=== PATIENT | male | born 1995 | race Caucasian/White ===

== ENCOUNTER 2025-03-17 10:27 | Emergency (ER) | payer BC, SELFPAY ==
[2025-03-17] VITALS (7 sets, daily range): BP systolic 119–157; BP diastolic 73–91; PULSE 78–90; RESP 18–20; TEMP 36.8–36.9; O2SAT 99–100; BMI 26.9
--- NOTE | 2025-03-17 11:16 | ED.GENADULT ---
HPI - General Adult General Chief complaint: General Medical Stated complaint: ANXIETY,DIZZINESS Time Seen by Provider: 03/17/25 10:46 Source: patient, EMS, RN notes reviewed and old records reviewed Mode of arrival: EMS History of Present Illness ED Provider: Kiarra Chandra PA-C HPI narrative: 29-year-old male with past medical history of anxiety presenting to the ED via EMS s/p feeling lightheaded/presyncopal & palpitations [employer] while driving his car. States he has been experiencing intermittent lightheadedness/presyncopal episodes x few months s/p drinking 2 Celsius drinks which he attributes symptoms starting from. Admits symptoms last about 1 hour followed by fatigue. Reports some associated chest discomfort and LUE tingling. Patient was seen and treated at [facility] ED about 3 weeks ago for similar symptoms states he had negative workup including CXR and head CT, was referred to [facility] neurology which he has an appointment on 03/28/2025. Also reports intermittent ETOH use, denies history of ETOH withdrawal. Denies headache, vision change or loss, nausea/vomiting, abdominal pain, SOB Related Data Allergies Allergy/AdvReac Type Severity Reaction Status Date / Time No Known Allergies Allergy Verified 03/17/25 10:47 Review of Systems Review of Systems: Yes all other systems are reviewed and are negative Constitutional: Constitutional: Reports as per HPI Neurologic: Denies Abnormal speech present [facility] Past Medical History Attestation statement: The following information was validated with the patient. Source: old records reviewed Social History Social History Alcohol intake: current Smoked in Last 30 Days: Yes Use of substances other than those prescribed or required for medical reasons: No Advance Directives: No Advance Directives Information Provided: Yes Do you have a plan to hurt others: No Plan Physical Exam ED Vital Signs: Vital Signs - 24 hr 03/17/25 10:46 03/17/25 12:48 03/17/25 12:49 Temperature 98.2 F Pulse Rate 90 78 84 Respiratory Rate 20 Blood Pressure 131/84 119/73 125/83 Pulse Oximetry 100 Oxygen Delivery Method Room Air 03/17/25 12:50 03/17/25 12:51 03/17/25 14:48 Temperature 98.5 F 98.5 F Pulse Rate 84 84 84 Respiratory Rate 18 18 Blood Pressure 127/91 H 125/83 125/83 Pulse Oximetry 99 99 Oxygen Delivery Method Room Air Room Air BMI result Body Mass Index 26.9 Const General: cooperative, healthy appearing, no acute distress, alert and awake Orientation/consciousness: patient oriented x3 Limitations: no limitations HENMT Head: Yes normal to inspection and Yes atraumatic Ears: hearing grossly normal bilaterally General nose exam: Normal external nose present Face and sinus: Yes normal facial exam Mouth: Normal oral and palatal mucosa present Throat: Yes posterior oropharynx normal and Yes uvula midline Eyes General: appearance normal, both eyes and all related structures Pupils: Equal, round and reactive pupils present EOM: EOMs intact bilaterally Neck Neck: Yes normal visual inspection and Yes no meningeal signs Resp Effort & Inspection: normal respiratory effort and no respiratory distress Auscultation: clear to auscultation bilaterally, no crackles, no rhonchi and no wheezes Cardio Rate: regular rate Heart sounds: S1 normal heart sound present and S2 normal heart sound present GI Inspection: Yes normal to inspection Palpation (GI): Soft to palpation, nontender, no guarding and not rigid Skin Rashes: no rashes Wounds: no wounds Neuro General: patient oriented x3, tone normal, moves all extremities, no meningeal signs, no focal motor deficits and CN's II-XI intact bilaterally Cranial nerves: Yes CN's II-XII intact bilaterally, Yes Equal, round and reactive pupils present and Yes Bilaterally intact EOM present Cognition (Neuro): normal cognition Speech: No Abnormal speech present Gait exam (Neuro): Normal gait present Motor exam (neuro): 5/5 motor strength present throughout, Pronator motor function not present and no tremor noted Coordination: [id number] test normal Romberg Test: Negative Extrem General: Yes normal to inspection Course Course Course Narrative: -1426--labs reassuring. AST/ALT mildly elevated. Troponin negative -tox screen positive for amphetamines. Ethanol 23 -viral testing negative -orthostatic vital signs negative Results discussed with patient including worrisome signs and symptoms and strict return precautions, and when to return to the emergency department. They verbalized understanding and feel safe for discharge at this time. Medications Administered Discontinued Medications Generic Name Dose Route Start Last Admin Trade Name Freq PRN Reason Stop Dose Admin Sodium Chloride 1,000 mls @ 999 mls/hr 03/17/25 11:30 03/17/25 11:59 Ns IV 03/17/25 12:30 999 mls/hr .Q1H1M HUGH Administration Medical Decision Making Medical Decision Making MDM Narrative: 29-year-old male with past medical history of anxiety presenting to the ED via EMS s/p feeling lightheaded/presyncopal & palpitations [employer] while driving his car. On exam vital signs stable, NAD, nontoxic appearing, no focal neuro deficits, lungs CTA. Concern for anxiety/panic attack vs presyncope. Low suspicion for ICH, SAH, meningitis/encephalitis,, ACS/PE, infectious etiology or dissection Plan: EKG, labs, UA/tox screen, orthostatic, IVF, re-evaluate Please refer to course for remaining clinical decision making, interpretation of labs/imaging results, and discussions with consultants and/or family members. Differential Diagnosis Differential Diagnoses: The differential diagnosis associated with the presentation includes As above Admission/Observation Consideration of admission/observation: Escalation of care including admission/observation considered Lab Data [facility] Lab Attestation statement: I reviewed the patient's lab results. 03/17/25 12:19 03/17/25 12:19 Labs: Lab Results 03/17/25 03/17/25 Range/Units 12:19 13:02 WBC 7.9 (4.8-10.8) X10*3/uL RBC 4.73 (4.60-5.80) X10*6/uL Hgb 15.1 (14.0-18.0) g/dl Hct 41.9 L (42.0-52.0) % MCV 88.6 (80.0-98.0) fL MCH 31.9 (27.0-33.0) pg MCHC 36.0 (31.0-36.0) g/dl RDW 12.6 (11.0-16.0) % Plt Count 194 (160-400) X10*3/uL MPV 9.2 L (9.4-12.4) fL Immature Gran % (Auto) 0.3 (0.0-0.4) % Neut % (Auto) 83.4 H (45-73) % Lymph % (Auto) 9.1 L (20-40) % Canyon % (Auto) 6.4 (2-11) % Eos % (Auto) 0.4 (0-4) % Baso % (Auto) 0.4 (0-2) % Lymph # (Auto) 0.7 L (1.2-4.9) X10*3/uL Canyon # (Auto) 0.5 (0.1-1.2) X10*3/uL Eos # (Auto) 0.0 (0.0-0.4) X10*3/uL Baso # (Auto) 0.0 (0.0-0.2) X10*3/uL Abs Immat Gran (auto) 0.02 (0.00-0.03) X10*3/uL Absolute Neuts (auto) 6.6 (2.0-8.3) x10*3/uL Absolute Nucleated RBC 0.000 (0.0-0.012) X10*3/uL Nucleated RBC % (auto) 0.0 (0.0-0.2) /100WBC Sodium 143 (135-145) mmol/L Potassium 4.2 (3.3-5.1) mmol/L Chloride 114 H (96-108) mmol/L Carbon Dioxide 20 L (22-29) mmol/L Anion Gap 13 (12-20) BUN 11 (9-16) mg/dL Creatinine 0.95 (0.5-1.4) mg/dL Estim Creat Clear Calc 108.2 Estimated GFR > 60 Random Glucose 75 (60-115) mg/dL Calcium 8.3 L (8.4-10.2) mg/dL Magnesium 1.9 (1.6-2.6) mg/dL Total Bilirubin 0.4 (0.0-1.0) mg/dL Direct Bilirubin 0.2 (0.0-0.5) mg/dL AST 48 H (5-37) U/L ALT 49 H (0-40) U/L Alkaline Phosphatase 45 (39-117) U/L Troponin I High Sens < 2.7 (<3.5-35.0) ng/L Total Protein 6.4 L (6.5-8.0) g/dL Albumin 4.1 (3.5-5.0) g/dL Urine Opiates Screen Not Detected (Not Detect) Ur Buprenorphine Scrn Not Detected (Not Detect) ng/mL Ur Oxycodone Screen Not Detected (Not Detect) ng/mL Urine Methadone Screen Not Detected (Not Detect) ng/mL Urine Fentanyl Screen Not Detected (Not Detect) Ur Barbiturates Screen Not Detected (Not Detect) Ur Phencyclidine Scrn Not Detected (Not Detect) Ur Amphetamines Screen POSITIVE H (Not Detect) U Benzodiazepines Scrn Not Detected (Not Detect) Urine Cocaine Screen Not Detected (Not Detect) U Marijuana (THC) Screen Not Detected (Not Detect) Ethyl Alcohol 23 mg/dL Influenza Type A (PCR) NEGATIVE (Negative) Influenza Type B (PCR) NEGATIVE (Negative) RSV RNA Qual (PCR) NEGATIVE (Negative) SARS-CoV-2 RNA (RT-PCR) NEGATIVE (Negative) Independent Interpretation I performed an independent interpretation of an: EKG Radiology Impression Discussion of test interpretation with radiology: I have reviewed the radiologist's reading. Independent Historian Clinical information obtained from an independent historian. History obtained from or confirmed by: EMS External Record Review External record reviewed: Inpatient record, Office record, Outpatient record, Prior outpatient labs, Prior outpatient radiology, Primary care record and Outside ED record Tests considered The following testing was considered but not selected: As above Prescription Management I considered prescription management with: Other Chronic Conditions Patient?s care impacted by: Other Social Determinants Patient?s care significantly limited by Social Determinants of Health including: Other Social Determinant of Health Discharge Plan Discharge Clinical Impression: Lightheadedness Patient Disposition: Home, Self-Care Instructions: Lightheadedness (ED) Additional Instructions: Your blood work is reassuring Continue home prescribed medications Please have close follow up with your primary care doctor as well as Neurology as and call to make an appointment Times persist or worsen, become constant, you have persistent or worsening nausea and for your vomiting, weakness, vision change or loss, chest negative pain or shortness of breath return to the ED [place] [facility] [facility] [place] - 1 week Yasmine Reaves FNP [Primary Care Provider] - 5 days Interventions: ED Discharge Assessment Last Done: 03/17/25 14:48 Discharge Date/Time: 03/17/25 14:49 Print Language: Bhutanese
--- NOTE | 2025-03-17 11:30 | ECG_ITS ---
Test Reason : light headed Blood Pressure : */* mmHG Vent. Rate : 81 BPM Atrial Rate : 81 BPM P-R Int : 138 ms QRS Dur : 84 ms QT Int : 376 ms P-R-T Axes : 33 22 32 degrees QTcB Int : 436 ms Normal sinus rhythm Normal ECG No previous ECGs available Referred By: Kiarra Chandra Electronically Signed By: VERONICA YUSUF
[2025-03-17] MEDS: 0.9 % Sodium Chloride 1,000 ML 999 ML IV (11:59)
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
[2025-03-17 12:23] LABS: MANUAL DIFF FLAG NO
[2025-03-17 12:28] LABS: Basophils Percent Auto 0.4 % (0-2); Eosinophils Percent Auto 0.4 % (0-4); Hematocrit 41.9 % (42.0-52.0); Hemoglobin 15.1 g/dl (14.0-18.0); Imm Gran Abs Auto 0.02 X10*3/uL (0.00-0.03); Imm Gran Pct Auto 0.3 % (0.0-0.4); Lymphocytes Absolute Auto 0.7 X10*3/uL (1.2-4.9); Lymphocytes Percent Auto 9.1 % (20-40); Mean Corpuscular Hemoglobin 31.9 pg (27.0-33.0); Mean Corpuscular Volume 88.6 fL (80.0-98.0); Mean Platelet Volume 9.2 fL (9.4-12.4); Monocytes Absolute Auto 0.5 X10*3/uL (0.1-1.2); Monocytes Percent Auto 6.4 % (2-11); Neutrophils Absolute Auto 6.6 x10*3/uL (2.0-8.3); Neutrophils Percent Auto 83.4 % (45-73); Platelet Count 194 X10*3/uL (160-400); Red Blood Count 4.73 X10*6/uL (4.60-5.80); Red Cell Distribution Width 12.6 % (11.0-16.0); White Blood Count 7.9 X10*3/uL (4.8-10.8)
[2025-03-17 12:40] LABS: Alanine Aminotransferase 49 U/L (0-40); Albumin Level 4.1 g/dL (3.5-5.0); Alkaline Phosphatase 45 U/L (39-117); Anion Gap 13 (12-20); Aspartate Amino Transferase 48 U/L (5-37); Bilirubin Direct 0.2 mg/dL (0.0-0.5); Bilirubin Total 0.4 mg/dL (0.0-1.0); Blood Urea Nitrogen 11 mg/dL (9-16); Calcium 8.3 mg/dL (8.4-10.2); Carbon Dioxide 20 mmol/L (22-29); Chloride 114 mmol/L (96-108); Creatinine Clr Calc Pharmacy 108.2; Estimated Glomerular Filt Rate > 60; Ethanol 23 mg/dL; Glucose Random 75 mg/dL (60-115); Magnesium 1.9 mg/dL (1.6-2.6); Potassium 4.2 mmol/L (3.3-5.1); Sodium 143 mmol/L (135-145); Total Protein 6.4 g/dL (6.5-8.0)
[2025-03-17 12:48] LABS: Troponin-I High Sensitivity < 2.7 ng/L (<3.5-35.0)
--- OUTSIDE RECORDS SUMMARY | 2025-03-17 12:50 | XMS_ITS | Clinical Summary ---
Author Organization [facility] Address [address] [place] [address] Phone Care Team Providers Care Laboratory Tech Name Role Phone Priya Etienne MD Primary Care Provider [email or web address] Allergies No known active allergies Medications Medication Sig Dispensed Refills Start Date End Date Status albuterol (PROAIR HFA) 90 mcg/actuation inhaler Inhale 2 puffs into the lungs every 4 (four) hours as needed for wheezing. 18 g 1 08/20/2021 Active Active Problems Problem Noted Date Diagnosed Date Mild intermittent asthma without complication Assessment & Plan (10/25/2021 5:07 PM EST): Likely secondary to smoking, as he did not have issues as a child Continue albuterol as needed Strongly recommended smoking cessation Lower abdominal pain 10/25/2021 Assessment & Plan (10/25/2021 5:14 PM EST): Rare episodes of brief sharp abdominal pain may be spontaneous volvulus, muscle cramp, intestinal colic As long as episodes do not last more than a few seconds, do not occur more frequently, and do not come with any other symptoms, ok to monitor Cigarette nicotine dependence without complicati on 12/21/2019 Anxiety 12/21/2019 Depression 12/21/2019 Attention deficit hyperactiv ity disorder (ADHD), combined type 12/21/2019 Assessment & Plan (10/25/2021 5:15 PM EST): he may be starting with an telemedicine service online for psychiatry Encounters Date Type Department Care Team Description 02/14/2025 5:08 PM EDT - 02/14/2025 7:40 PM EDT Emergency [facility] [address] [place] [address] Chato Greenberg MD Discharge Disposition: Home or Self Care 02/14/2025 Procedure Pass [facility], Ct Scan - [facility] [address] [place] [address] from Last 3 Months Immunizations Name Administration Dates Next Due DTaP 12/14/2000, 8,06/05/1997,04/08,02/10/1997 [id number] FORMULATION 09/23/2009 HPV,quadrivalent 10/23/2012,06/20/2012, 2 Hepatitis B 09/03/1997,01/23/1997,1996 Hib,PRP-T 04/01/1998, 7,04/08/1997,02/10 IPV 12/14/2000 Influenza Quadrivalent Prese rvative Free IM 10/25/2021,09/01/2015,08/27/2014,08/15 Influenza Recombinant Javier valent Preservative Free IM 12/17/2019 Influenza Trivalent w/ Preservative IM 2,09/15/2011,09/23/2010 Influenza, Unspecified Formulation 07/19,10/16/2008,09/21/2007,10/23 MMR 01/10/2002,04/01/1998 Meningococcal MCV4P 08/27/2014,02/24/2009 Polio - OPV 06/05/1997,04/08/1997,02/10/1997 Tdap 10/25/2021,02/24/2009 Varicella 02/22/2008,02/19/1999 Family History Medical History Relation Comments Bladder Cancer Maternal Grandfather Diabetes Maternal Grandfather Diabetes Maternal Grandmother Dementia Maternal Great-Grandmother Bladder Cancer Maternal Uncle great uncle Diabetes Paternal Grandfather Diabetes Paternal Grandmother Anxiety disorder Sister Depression Sister ADD / ADHD Unspecified Anxiety disorder Unspecified Depression Unspecified Relation Status Comments Father Alive Maternal Grandfather Maternal Grandmother Maternal Great-Grandmother Maternal Uncle Mother Alive Paternal Grandfather Paternal Grandmother Sister Unspecified cousin Social History Tobacco Use Types Packs/Day Years Used Date Smoking Tobacco: Every Day Cigarettes 0.5 15.3 Started: 2009 Smokeless Tobacco: Former Tobacco Cessation:Ready to Q uit: Not Asked; Counseling Given: Not Answered Alcohol Use Standard Drinks/Week Comments Yes 8 (1 standard drink = 0.6 oz pur e alcohol) A few nips on weekends Education Answer Date Recorded Are you interested in more education? Not on kaylene e 03/10/2023 Are you concerned about learning? Not on file 03/10/2023 No 03/10/2023 No 03/10/2023 Digital Access Answer Date Recorded No 04/07/2023 No 04/07/2023 Reliable internet access at home? Not on file 04/07/2023 Device with a working camera? Not on file Intimate Partner Violence Answer Date R ecorded Are you denied basic needs s uch as food, clothing, or medical care? No 02/14/2025 In the past 12 months have y ou been in a relationship with a person who hurts, threatens, or tries to control you? No 02/14/2025 Are you denied basic needs s uch as food, clothing, or medical care? No 02/14/2025 In the past 12 months have y ou been in a relationship with a person who hurts, threatens, or tries to control you? No 02/14/2025 Sex and Gender Information Value Date Recorded Sex Assigned at Male 04/02/2018 11:34 AM EDT Gender Identity Male 04/02/2018 11:34 AM EDT Sexual Orientation Straight 04/02/2018 11 :34 AM EDT Last Filed Vital Signs Vital Sign Reading Time Taken Comments Blood Pressure 129/82 02/14/2025 6:03 PM EDT Pulse 74 02/14/2025 6:03 PM EDT Temperature 36.7 ??C (98.1 ??F) 02/14/2025 6:03 PM ED T Respiratory Rate 18 02/14/2025 6:03 PM EDT Oxygen Saturation 99% 02/14/2025 6:03 PM EDT Inhaled Oxygen Concentration - - Weight 80.2 kg (176 lb 12.8 oz) 02/14/2025 2:42 PM EDT Height 170.2 cm (5' 7 ) 02/14/2025 2:42 PM EDT Body Mass Index 27.69 02/14/2025 2:42 PM EDT Plan of Treatment Health Maintenance Due Date Last Done Comments DEPRESSION SCREENING 2008 HEPATITIS C SCREENING 2014 HIV ONE-TIME SCREENING (18-65 YEARS) 2014 PNEUMOCOCCAL VACCINES (0-49 years) (1 of 2 - PCV) 2015 COVID-19 VACCINE (3 - season) 2024 10/13/2021, 09/22/2021 SMOKING Hx and SMOKELESS TOBACCO SCREENING 02/14/2026 02/14/2025 Adult Td,Tdap Booster 10/25/2031 10/25/2021, 009 HIB VACCINES Completed 04/01/1998, 05/14, 04/08/1997, Additional history exists MENINGOCOCCAL VACCINES (ACWY) Completed 08/27/2014, 02/24/2009 HEPATITIS A VACCINES Aged Out No long er eligible based on patient's age to complete this topic Medical Devices Not on file Procedures Procedure Name Priority Date/Time Associated Diagnosis Comments CT HEAD WITHOUT CONTRAST Routine 02/14/2025 4:34 PM EDT XR CHEST PA AND LATERAL 2 VIEWS Routine 02/14/2025 3:42 PM EDT ETHANOL, BLOOD STAT 02/14/2025 3:28 PM EDT MAGNESIUM STAT 02/14/2025 3:28 PM EDT LFTS (HEPATIC PANEL) STAT 02/14/2025 3:28 PM EDT BASIC METABOLIC PANEL STAT 02/14/2025 3:28 PM EDT CBC AND DIFFERENTIAL STAT 02/14/2025 3:28 PM EDT ECG 12-LEAD STAT 02/14/2025 2:54 PM EDT COVID PANDEMIC RESPIRATORY VIRAL ORDER (PRO) STAT 02/14/2025 2:49 PM EDT from Last 3 Months Results * CT HEAD WITHOUT CONTRAST (02/14/2025 4:34 PM EDT) Anatomical Region Laterality Modality Head Computed Tomogra phy 02/14/2025 5:24 PM EDT Impressions 02/14/2025 5:27 PM EDT No acute intracranial findings. Narrative 02/14/2025 5:[address] HEAD WITHOUT CONTRAST Referring clinician's provided indication for this examination in [facility]: * Head trauma, mod-severe; previous head trama, dizziness TECHNIQUE: CT of the head was performed without intravenous contrast using tailored dose modulation techniques. Images were reconstructed in the axial, coronal, and sagittal planes. COMPARISON: None FINDINGS: Brain Parenchyma: Normal. No midline shift, mass effect, parenchymal hemorrhage, or evidence of acute territorial infarct. Ventricular System and Extra-Axial Spaces: Normal. No extra-axial fluid collections. Basal cisterns are patent. No hydrocephalus. Osseous and Extracranial Structures: No calvarial fracture or significant soft tissue hematoma. Near-complete opacification of the left maxillary sinus. Mild mucosal thickening throughout of the paranasal sinuses. No orbital abnormality. Procedure Note Rickie Uribe MD, PhD - 02/14/2025 CT HEAD WITHOUT CONTRAST Referring clinician's provided indication for this examination in [facility]: *Head trauma, mod-severe; previous head trama, dizziness TECHNIQUE: CT of the head was performed without intravenous contrast usingtailored dose modulation techniques. Images were reconstructed in theaxial, coronal, and sagittal planes. COMPARISON: None FINDINGS: Brain Parenchyma: Normal. No midline shift, mass effect, parenchymalhemorrhage, or evidence of acute territorial infarct. Ventricular System and Extra-Axial Spaces: Normal. No extra-axial fluidcollections. Basal cisterns are patent. No hydrocephalus. Osseous and Extracranial Structures: No calvarial fracture or significantsoft tissue hematoma. Near-complete opacification of the left maxillarysinus. Mild mucosal thickening throughout of the paranasal sinuses. Noorbital abnormality. IMPRESSION: No acute intracranial findings. Rickie Garcia Dionicio PA-C IMG CT HEAD/NECK * XR CHEST PA AND LATERAL 2 VIEWS (02/14/2025 3:42 PM EDT) Anatomical Region Laterality Modality Chest Computed Radiogr aphy 02/14/2025 4:34 PM EDT Impressions 02/14/2025 4:35 PM EDT No focal consolidation or pulmonary edema. Narrative 02/14/2025 4:35 PM EDT XR CHEST PA AND LATERAL 2 VIEWS Referring clinician's provided indication for this examination in [facility]: Weakness/Malaise COMPARISON: None. FINDINGS: Devices/Tubes/Lines: None. Lungs: No focal consolidation or pulmonary edema. Pleura: No pleural effusion or pneumothorax. Heart/Mediastinum: Normal heart and mediastinum. Bones/Soft Tissues: No significant abnormality. Procedure Note Yuly Jones MD - 02/14/2025 XR CHEST PA AND LATERAL 2 VIEWS Referring clinician's provided indication for this examination in [facility]:Weakness/Malaise COMPARISON: None. FINDINGS: Devices/Tubes/Lines: None. Lungs: No focal consolidation or pulmonary edema. Pleura: No pleural effusion or pneumothorax. Heart/Mediastinum: Normal heart and mediastinum. Bones/Soft Tissues: No significant abnormality. IMPRESSION: No focal consolidation or pulmonary edema. Rickie Radha Dionicio PA-C IMG XR CHEST * Ethanol, blood (02/14/2025 3:28 PM EDT) ETHANOL <10 <10 mg/dL [facility] Blood 02/14/2025 3:28 PM EDT 02/14/2025 3:37 PM EDT Rickie REVELES-C LAB BLOOD ORDERABLES Performing Organization Address City/[facility]/ZIP Co de Phone Number [address] [address] * (ABNORMAL) LFTs (hepatic panel) (02/14/2025 3:28 PM EDT) Pathologist [facility] ALKALINE PHOSPHATASE 55 39 - 117 U/L [facility] TOTAL BILIRUBIN 0.3 0.0 - 1.2 mg/dL [facility] DIRECT BILIRUBIN 0.1 0.0 - 0.2 mg/dL [facility] Bilirubin (Indirect) NOT CALCULATED 0 - 1.5 mg/dL [facility] AST 34 0 - 37 U/L [facility] ALT 44(H) 0 - 40 U/L [facility] TOTAL PROTEIN 7.6 6.5 - 8.0 g/dL [facility] ALBUMIN 4.7 3.9 - 4.8 g/dL [facility] GLOBULIN 2.9 1 - 4.8 g/dL [facility] A/G Ratio 1.62 1.00 - 4.80 RATIO [facility] Blood 02/14/2025 3:28 PM EDT 02/14/2025 3:37 PM EDT Rickie Greenberg PA-C LAB BLOOD ORDERABLES Performing Organization Address [facility] Co de Phone Number [address] [address] * (ABNORMAL) CBC and differential (02/14/2025 3:28 PM EDT) WBC 11.35(H) 4.00 - 11.00 K/uL [facility] RBC 5.06 4.50 - 5.90 M/uL [facility] HGB 15.9 13.5 - 17.5 g/dL [facility] HCT 44.7 41.0 - 53.0 % [facility] PLT 266 150 - 450 K/uL [facility] MCV 88.3 80.0 - 100.0 fL [facility] MCH 31.4(H) 27.0 - 31.0 pg [facility] MCHC 35.6 32.0 - 36.0 g/dL [facility] RDW 12.5 11.5 - 14.5 % [facility] MPV 9.4 8.4 - 12.0 fL [facility] NRBC 0.00 0.00 /100 WBCs [facility] ABSOLUTE NRBC 0.00 0.00 K/uL [facility] DIFF METHOD Auto [facility] NEUTS 82.7(H) 48.0 - 76.0 % [facility] LYMPHS 9.5(L) 18.0 - 41.0 % [facility] MONOS 5.9 4.0 - 11.0 % [facility] EOS 1.1 0.0 - 5.0 % [facility] BASOS 0.4 0.0 - 1.5 % [facility] Granulocytes, immature (%) 0.4 0.0 - 0.9 % [facility] ABSOLUTE NEUTS 9.38(H) 1.92 - 7.60 K/uL [facility] ABSOLUTE LYMPHS 1.08 0.72 - 4.10 K/uL [facility] ABSOLUTE MONOS 0.67 0.16 - 1.10 K/uL [facility] ABSOLUTE EOS 0.12 0.00 - 0.50 K/uL [facility] ABSOLUTE BASOS 0.05 0.00 - 0.15 K/uL [facility] Granulocytes, immature 0.05 0.00 - 0.09 K/uL [facility] Blood 02/14/2025 3:28 PM EDT 02/14/2025 3:37 PM EDT Rickie Greenberg PA-C LAB BLOOD ORDERABLES [address] [address] * Magnesium (02/14/2025 3:28 PM EDT) MAGNESIUM 2.0 1.6 - 2.6 mg/dL [facility] Blood 02/14/2025 3:28 PM EDT 02/14/2025 3:37 PM EDT Rickie Greenberg PA-C LAB BLOOD ORDERABLES Performing Organization Address [facility] Co de Phone Number [address] [address] * Basic metabolic panel (02/14/2025 3:28 PM EDT) Pathologist [facility] SODIUM 138 133 - 146 mmol/L [facility] CHLORIDE 104 96 - 108 mmol/L [facility] POTASSIUM 4.3 3.3 - 5.1 mmol/L [facility] Comment:Specimen slightly he molyzed, result may be falsely elevated. CO2 23 21 - 35 mmol/L [facility] BUN 14 6 - 19 mg/dL [facility] CREATININE 1.10 0.5 - 1.5 mg/dL [facility] GLUCOSE 86 70 - 99 mg/dL [facility] CALCIUM 9.8 8.4 - 10.3 mg/dL [facility] EGFR 94 >59 mL/min/1.7 3m2 [facility] Comment:Estimated glomerular filtration rate calculated using the CKD-EPI refit equation. ANION GAP 15 10 - 20 mmol/L [facility] Blood 02/14/2025 3:28 PM EDT 02/14/2025 3:37 PM EDT Rickie Greenberg PA-C LAB BLOOD ORDERABLES Performing Organization Address [facility] Co de Phone Number [address] [address] * ECG 12-LEAD (02/14/2025 2:54 PM EDT) Ventricular Rate EKG/MIN 86 BPM [facility] Atrial Rate 86 BPM [facility] TX Interval 132 ms [facility] QRS Duration 78 ms [facility] QT Interval 352 ms [facility] QTC Interval 421 ms [facility] P [place] 41 degrees [facility] R Wave [place] 20 degrees [facility] T Wave [place] 29 degrees [facility] 02/14/2025 2:54 PM EDT 02/14/2025 11:25 PM EDT Narrative [facility] - 02/14/2025 11:25 PM EDT Normal sinus rhythm Normal ECG When compared with ECG of 24-Dec-2015 09:09, Questionable change in QRS axis Confirmed by Niko ERWIN ([id number]) on 02/14/2025 11:25:50 PM Chato Greenberg MD ECG ORDERABLES [facility] * COVID Pandemic Respiratory Viral Order (PRO) (02/14/2025 2:49 PM EDT) Test Ordered COVID, Flu has been ordered [facility] Specimen Source/Descriptio n NASOPHARYNGEAL SWAB [facility] Influenza A PCR Not Detected Not Detected [facility] Influenza B PCR Not Detected Not Detected [facility] SARS-CoV 2 (COVID-19) PCR Not Detected Not Detected [facility] Comment: SARS-CoV-2 not detected Negative results do not preclude SARS-CoV-2 infection and should not be used as the sole basis for patient management decisions. Negative results must be combined with clinical observations, patient history, and epidemiological information. Other (Nasopharyngeal swab) 02/14/2025 2:49 PM EDT 02/14/2025 3:11 PM EDT Chato Greenberg MD BODY FLUIDS AND STOO LS ORDERABLES Performing Organization Address City/[facility] Co de Phone Number [facility] [address] [place] [address] from Last 3 Months Care Teams Laboratory Tech Relationship Specialty Start Date End Date Priya Etienne MD [email or web address] PCP - General Family Medicine 09/08/21 Additional Source Comments The information contained in this document represents components of the legal health record. It is not the complete legal health record.[facility]
--- OUTSIDE RECORDS SUMMARY | 2025-03-17 12:50 | XMS_ITS | Encounter Summary ---
Author Organization [facility] Address [address] [place] [address] Phone Care Team Providers Care Bass Viol Repairer Name Role Phone Priya Etienne MD Primary Care Provider [email or web address] Encounter Details Date Type Department Care Team (Latest Contact Info) Description 08/23/2023 Transcribe Orders [facility] [address] [place] [address] Hannah Dugan NP [address] [place] [address] [email or web address] (Primary Dx); Periumbilical pain, chronic; Diarrhea, unspecified type Social History Tobacco Use Types Packs/Day Years Used Date Smoking Tobacco: Every Day Cigarettes 0.5 15.3 Started: 2009 Smokeless Tobacco: Former Alcohol Use Standard Drinks/Week Comments Yes 0 (1 standard drink = 0.6 oz pur [...] with a working camera? Not on file Sex and Gender Information Value Date Recorded Sex Assigned at Male 04/02/2018 11:34 AM EDT Gender Identity Male 04/02/2018 11:34 AM EDT Sexual Orientation Straight 04/02/2018 11 :34 AM EDT documented as of this encounter Plan of Treatment Not on file documented as of this encounter Results * C-Reactive Protein (08/23/2023 3:06 PM EDT) C REACTIVE PROTEIN <3.0 0.0 - 4.0 mg/L [facility] Blood 08/23/2023 3:06 PM EDT 08/23/2023 3:10 PM EDT Hannah Dugan REGIONAL ENVIRONMENTAL MANAGER LAB BLOOD ORDERABLE S [facility] [address] [place] [address] * (ABNORMAL) Comprehensive metabolic panel (08/23/2023 3:06 PM EDT) SODIUM 138 133 - 146 mmol/L [facility] POTASSIUM 4.3 3.3 - 5.1 mmol/L [facility] CHLORIDE 104 96 - 108 mmol/L [facility] CO2 23 21 - 35 mmol/L [facility] BUN 13 6 - 19 mg/dL [facility] CREATININE 1.20 0.5 - 1.5 mg/dL [facility] GLUCOSE 84 70 - 99 mg/dL [facility] ALBUMIN 5.0(H) 3.9 - 4.8 g/dL [facility] TOTAL PROTEIN 7.8 6.5 - 8.0 g/dL [facility] CALCIUM 10.1 8.4 - 10.3 mg/dL [facility] ALKALINE PHOSPHATASE 57 39 - 117 U/L [facility] TOTAL BILIRUBIN 0.4 0.0 - 1.2 mg/dL [facility] AST 43(H) 0 - 37 U/L [facility] ALT 38 0 - 40 U/L [facility] GLOBULIN 2.8 1 - 4.8 g/dL [facility] EGFR 86 >59 mL/min/1.7 3m2 [facility] Comment:Estimated glomerular filtration rate calculated using the CKD-EPI refit equation. ANION GAP 15 10 - 20 mmol/L [facility] Blood 08/23/2023 3:06 PM EDT 08/23/2023 3:10 PM EDT Hannah Dugan REGIONAL ENVIRONMENTAL MANAGER LAB BLOOD ORDERABLE S [facility] [address] [place] [address] * CBC and differential (08/23/2023 3:06 PM EDT) WBC 6.78 4.00 - 11.00 K/uL [facility] RBC 5.02 4.48 - 5.88 M/uL [facility] HGB 16.0 13.4 - 17.5 g/dL [facility] HCT 45.5 38.0 - 51.0 % [facility] PLT 228 140 - 430 K/uL [facility] MCV 90.6 78.0 - 97.0 fL [facility] MCH 31.9 25.0 - 33.0 pg [facility] MCHC 35.2 32.0 - 36.0 g/dL [facility] RDW 12.3 11.0 - 15.0 % [facility] MPV 11.0 8.4 - 12.8 fl [facility] DIFF METHOD Auto [facility] NEUTS 63.8 43.0 - 75.0 % [facility] LYMPHS 22.7 18.2 - 47.4 % [facility] MONOS 8.8 4.00 - 11.00 % [facility] EOS 3.4 0.0 - 8.0 % [facility] BASOS 0.9 0.0 - 2.0 % [facility] Granulocytes, immature (%) 0.4 0.0 - 0.9 % [facility] ABSOLUTE NEUTS 4.32 1.80 - 7.70 K/uL [facility] ABSOLUTE LYMPHS 1.54 1.00 - 3.10 K/uL [facility] ABSOLUTE MONOS 0.60 0.20 - 0.80 K/uL [facility] ABSOLUTE EOS 0.23 0.00 - 0.80 K/uL [facility] ABSOLUTE BASOS 0.06 0.00 - 0.09 K/uL [facility] Granulocytes, immature 0.03 0.00 - 0.05 K/uL [facility] Blood 08/23/2023 3:06 PM EDT 08/23/2023 3:10 PM EDT Hannah Dugan REGIONAL ENVIRONMENTAL MANAGER LAB BLOOD ORDERABLE S Performing Organization Address City/[facility] [address] [facility] Co de Phone Number [address] [address] * Immunoglobulin A (08/23/2023 3:06 PM EDT) IgA 173 70 - 400 mg/dL [facility] Blood 08/23/2023 3:06 PM EDT 08/23/2023 3:10 PM EDT Hannah Dugan REGIONAL ENVIRONMENTAL MANAGER LAB BLOOD ORDERABLE S Performing Organization Address [facility] [address]/[facility] Co de Phone Number [address] [address] * Tissue transglutaminase IgA (08/23/2023 3:06 PM EDT) TTG IGA ANTIBODY <1.2 <4.0 (Negative) U/mL [facility] Blood 08/23/2023 3:06 PM EDT 08/23/2023 3:10 PM EDT Hannah Dugan REGIONAL ENVIRONMENTAL MANAGER LAB BLOOD ORDERABLE S Performing Organization Address City/[facility] [address]/[facility] Co de Phone Number [facility] [address] [place] [address] documented in this encounter Visit Diagnoses Diagnosis Bloating- Primary Flatulence, eructation, and gas pain Periumbilical pain, chronic Diarrhea, unspecified type documented in this encounter Additional Health Concerns Infection Onset Date Last Indicated Resolved Time CoV-Risk 02/14/2025 02/14/2025 02/25/2025 1:23 AM EDT Assessment Noted Time A Body Mass Index follow-up plan has been documented for the patient 12/21/2019 11:13 AM EST documented as of this encounter Care Teams Bass Viol Repairer Relationship Specialty Start Date End Date Priya Etienne MD [email or web address] PCP - General Family Medicine 09/08/21 documented as of this encounter Additional Source Comments The information contained in this document represents components of the legal health record. It is not the complete legal health record.[facility]
--- OUTSIDE RECORDS SUMMARY | 2025-03-17 12:50 | XMS_ITS | Encounter Summary ---
Author Organization [facility] Address [address] [place] [address] Phone Care Team Providers Care Transcribing Machine Operator Name Role Phone John Guerrero MD Primary Care Provider [phone] Elaine Shook RNsalad bar clerk Provider [phone] Gisselle Mcclellan MD Primary Care Provider [phone] Priya Etienne MD Primary Care Provider [email or web address] Encounter Details Date Type Department Care Team (Late st Contact Info) Description 07/24/2018 Procedure Pass [address] [place] [address] Social History Tobacco Use Types Packs/Day Years Used Date Smoking Tobacco: Former Smokeless Tobacco: Former Sex and Gender Information Value Date Recorded Sex Assigned at Male 04/02/2018 11:34 AM EDT Gender Identity Male 04/02/2018 11:34 AM EDT Sexual Orientation Straight 04/02/2018 11 :34 AM EDT documented as of this encounter Last Filed Vital Signs Vital Sign Reading Time Taken Comments Blood Pressure - - Pulse - - Temperature - - Respiratory Rate - - Oxygen Saturation - - Inhaled Oxygen Concentration - - Weight 66.2 kg (146 lb) 07/27/2018 5:05 PM EDT Height 170.2 cm (5' 7 ) 07/27/2018 5:05 PM EDT Body Mass Index 22.87 07/27/2018 5:05 PM EDT documented in this encounter Plan of Treatment Not on file documented as of this encounter Visit Diagnoses Not on filedocumented in this encounter Additional Health Concerns Infection Onset Date Last Indicated Resolved Time CoV-Exposed Comment:Recent close contact 10/16/2020 10/16/2020 10/30/2020 1:25 AM EST CoV-Risk 08/20/2021 08/20/2021 08/30/2021 1:23 AM EDT CoV-Risk 02/14/2025 02/14/2025 02/25/2025 1:23 AM EDT documented as of this encounter Care Teams Transcribing Machine Operator Relationship Specialty Start Date End Date John Guerrero MD [address] [facility], [address] [place] [address] [email or web address] PCP - General 08/29/17 12/11/19 Elaine Shook RN [address] [place] [address] [email or web address] PCP - General Internal Medicine 12/12/19 08/19/21 Gisselle Mcclellan MD [address] [place] [address], [address] [place] [address] [email or web address] PCP - General Internal Medicine 08/20/21 09/07/21 Priya Etienne MD [email or web address] PCP - General Family Medicine 09/08/21 documented as of this encounter Additional Source Comments The information contained in this document represents components of the legal health record. It is not the complete legal health record.[facility]
--- OUTSIDE RECORDS SUMMARY | 2025-03-17 12:50 | XMS_ITS | Encounter Summary ---
Author Organization [facility] Address [address] [place] [address] Phone Care Team Providers Care Hospital Tray Service Worker Name Role Phone Priya Etienne MD Primary Care Provider [email or web address] Encounter Details Date Type Department Care Team (Late st Contact Info) Description 02/14/2025 Procedure Pass [facility], Ct Scan - [address] [address] Social History Tobacco Use Types Packs/Day Years Used Date Smoking Tobacco: Every Day Cigarettes 0.5 15.3 Started: 2009 Smokeless Tobacco: Former Alcohol Use Standard Drinks/Week Comments Yes 8 [...] documented as of this encounter Care Teams Hospital Tray Service Worker Relationship Specialty Start Date End Date Priya Etienne MD [email or web address] PCP - General Family Medicine 09/08/21 documented as of this encounter Additional Source Comments The information contained in this document represents components of the legal health record. It is not the complete legal health record.[facility]
--- OUTSIDE RECORDS SUMMARY | 2025-03-17 12:50 | XMS_ITS | Encounter Summary ---
Author Organization [facility] Address [address] [place] [address] Phone Care Team Providers Care Access Control Specialist Name Role Phone John Guerrero MD Primary Care Provider [phone] Elaine Shook RNpta Provider [phone] Gisselle Mcclellan MD Primary Care Provider [phone] Priya Etienne MD Primary Care Provider [email or web address] Reason for Referral * MRI/CAT Scan - Closed Specialty Diagnoses / Procedures Referred By Contac t Referred To Contact Radiology Diagnoses Chronic low back pain with sciatica, sciatica laterality unspecified, unspecified back pain laterality Lumbar radiculopathy Procedures MRI Lumbar Spine Jameel Rogers PA [address] [place] [address] Referral ID Status Reason Start Date Expiration Date Visits Re quested Visits Authorized [id number] Closed 07/17/2018 10/15/2018 1 1 Encounter Details Date Type Department Care Team (Latest Contact Info) Description 07/24/2018 Ancillary Orders Virtual Department [address] [place] [address] Jameel Rogers PA [address] [place] [address] [email or web address] Chronic low back pain with sciatica, sciatica laterality unspecified, unspecified back pain laterality; Lumbar radiculopathy Social History Tobacco Use Types Packs/Day Years Used Date Smoking Tobacco: Former Smokeless Tobacco: Former Sex and Gender Information Value Date Recorded Sex Assigned at Male 04/02/2018 11:34 AM EDT Gender Identity Male 04/02/2018 11:34 AM EDT Sexual Orientation Straight 04/02/2018 11 :34 AM EDT documented as of this encounter Plan of Treatment Not on file documented as of this encounter Results * MRI LUMBAR SPINE (NEURO) WITHOUT CONTRAST (08/01/2018 3:08 PM EDT) Anatomical Region Laterality Modality L-spine Magnetic Resonan ce 08/01/2018 3:13 PM EDT Impressions 08/01/2018 3:27 PM EDT Small, inferiorly extending left L4-5 disc protrusion abutting the left L4 nerve root. This could be a source of left radicular symptoms. POS - [id number] Edited by: Tawana Bridges on 08/01/2018 3:21 PM Narrative 08/01/2018 3:27 PM EDT HISTORY: Low back pain with left radiculopathy. COMPARISON: Report of EMG radiographs April 16. TECHNIQUE: Exam performed on a 1.5 Esme high-field MRI scanner. ??Sagittal T1, T2 and STIR, axial T1 and T2 sequences were obtained. FINDINGS: On sagittal views at T12-L1 and L1-2 no findings of concern. Mild disc desiccation L1-2. L2-3: Mild disc desiccation and some trace disc bulging. No canal or foraminal stenosis. L3-4: Low normal disc height. No focal disc abnormality of concern with some trace disc bulging towards the left foramen origin. No prominent canal or foraminal stenosis. L4-5: Left-sided inferiorly extending disc protrusion abutting the left L4 nerve root and could be a source of left radicular symptoms. There is only minor mass effect on the thecal sac. Mild disc height loss. L5-S1: No findings of concern. No worrisome marrow signal change. No compression deformity. Study not tailored for evaluation of regional soft tissues but no soft tissue findings of concern are identified. Procedure Note Amado Harvey MD - 08/01/2018 HISTORY: Low back pain with left radiculopathy. COMPARISON: Report of EMG radiographs April 16. TECHNIQUE: Exam performed on a 1.5 Esme high-field MRI scanner. SagittalT1, T2 and STIR, axial T1 and T2 sequences were obtained. FINDINGS: On sagittal views at T12-L1 and L1-2 no findings of concern. Mild discdesiccation L1-2. L2-3: Mild disc desiccation and some trace disc bulging. No canal orforaminal stenosis. L3-4: Low normal disc height. No focal disc abnormality of concern withsome trace disc bulging towards the left foramen origin. No prominentcanal or foraminal stenosis. L4-5: Left-sided inferiorly extending disc protrusion abutting the left [id number] root and could be a source of left radicular symptoms. There is onlyminor mass effect on the thecal sac. Mild disc height loss. L5-S1: No findings of concern. No worrisome marrow signal change. No compression deformity. Study not tailored for evaluation of regional soft tissues but no softtissue findings of concern are identified. IMPRESSION: Small, inferiorly extending left L4-5 disc protrusion abutting the left [id number] root. This could be a source of left radicular symptoms. POS - [id number] Edited by: Tawana Bridges on 08/01/2018 3:[address] [facility] MR XSPECIALTY documented in this encounter Visit Diagnoses Diagnosis Chronic low back pain with sciatica, sciatica laterality unspecified, unspecified back pain laterality Lumbar radiculopathy Thoracic or lumbosacral neuritis or radiculitis, unspecified Chronic low back pain with sciatica, sciatica laterality unspecified, unspecified back pain laterality Lumbar radiculopathy Thoracic or lumbosacral neuritis or radiculitis, unspecified documented in this encounter Additional Health Concerns Infection Onset Date Last Indicated Resolved Time CoV-Exposed Comment:Recent close contact 10/16/2020 10/16/2020 10/30/2020 1:25 AM EST CoV-Risk 08/20/2021 08/20/2021 08/30/2021 1:23 AM EDT CoV-Risk 02/14/2025 02/14/2025 02/25/2025 1:23 AM EDT documented as of this encounter Care Teams Access Control Specialist Relationship Specialty Start Date End Date John Guerrero MD [address] [facility], [address] [place] [address] [email or web address] PCP - General 08/29/17 12/11/19 Elaine Shook RN [address] [place] [address] [email or web address] PCP - General Internal Medicine 12/12/19 08/19/21 Gisselle Mcclellan MD [address] [place] [address], [address] [place] [address] [email or web address] PCP - General Internal Medicine 08/20/21 09/07/21 Priya Etienne MD [email or web address] PCP - General Family Medicine 09/08/21 documented as of this encounter Additional Source Comments The information contained in this document represents components of the legal health record. It is not the complete legal health record.[facility]
--- OUTSIDE RECORDS SUMMARY | 2025-03-17 12:50 | XMS_ITS | Encounter Summary ---
Author Organization [facility] Address [address] [place] [address] Phone Care Team Providers Care Surgical Device Sales Representative Name Role Phone Priya Etienne MD Primary Care Provider [email or web address] Encounter Details Date Type Department Care Team (Latest Contact Info) Description 08/24/2023 Transcribe Orders Virtual Department [address] [place] [address] Hannah Dugan NP [address] [place] [address] [email or web address] Bloating (Primary Dx); Diarrhea, unspecified type; Periumbilical abdominal pain Social History Tobacco Use Types Packs/Day Years [...] documented as of this encounter Visit Diagnoses Diagnosis Bloating- Primary Flatulence, eructation, and gas pain Diarrhea, unspecified type Periumbilical abdominal pain Abdominal pain, periumbilic documented in this encounter Additional Health Concerns Infection Onset Date Last Indicated Resolved Time CoV-Risk 02/14/2025 02/14/2025 02/25/2025 1:23 AM EDT Assessment Noted Time A Body Mass Index follow-up plan has been documented for the patient 12/21/2019 11:13 AM EST documented as of this encounter Care Teams Surgical Device Sales Representative Relationship Specialty Start Date End Date Priya Etienne MD [email or web address] PCP - General Family Medicine 09/08/21 documented as of this encounter Additional Source Comments The information contained in this document represents components of the legal health record. It is not the complete legal health record.[facility]
[2025-03-17 13:25] LABS: Amphetamine Screen Urine POSITIVE (Not Detect); Barbiturates, Urine Not Detected (Not Detect); Benzodiazepines Screen Urine Not Detected (Not Detect); Buprenorphine Scr Not Detected (Not Detect); Cannabinoid Screen Urine Not Detected (Not Detect); Cocaine Screen Urine Not Detected (Not Detect); Fentanyl, urine Not Detected (Not Detect); Methadone Screen, Urine Not Detected (Not Detect); Opiate Screen Urine Not Detected (Not Detect); Oxycodone Screen Urine Not Detected (Not Detect); Phencyclidine Screen Urine Not Detected (Not Detect)
[2025-03-17 13:39] LABS: Influenza A PCR NEGATIVE (Negative); Influenza B PCR NEGATIVE (Negative); Resp Syncy Virus RNA Qual PCR NEGATIVE (Negative); SARS COV2 PCR INHOUSE NEGATIVE (Negative)
== END 2025-03-17 14:49 | disposition home or self-care (01) ==
PROVIDERS: Physician Assistant; Emergency Provider Emergency Medicine
DX: F41.9 Anxiety disorder, unspecified (principal); R42 Dizziness and giddiness; R00.2 Palpitations; F15.90 Other stimulant use, unspecified, uncomplicated; F10.90 Alcohol use, unspecified, uncomplicated; Y90.1 Blood alcohol level of 20-39 mg/100 ml; Z79.899 Other long term (current) drug therapy; Z51.81 Encounter for therapeutic drug level monitoring; Z03.818 Encounter for observation for suspected exposure to other biological agents ruled out
CPT/HCPCS: 0241U; 80048; 80076; 80307; 83735; 84484; 85025; 93005; 99285

== ENCOUNTER → 2025-03-17 11:30 | Outpatient (BNV) | payer BC, SELFPAY | PROVIDERS: Emergency Provider Emergency Medicine; Visit Provider Internal Medicine | DX: R42 Dizziness and giddiness (principal) | CPT/HCPCS: 93010 ==

== ENCOUNTER 2025-04-06 18:56 | Emergency (ER) | payer BC, SELFPAY ==
--- NOTE | ~2025-04-06 | XR_ITS ---
CLINICAL HISTORY: severe pain rad L leg 2 views lumbar spine Comparison: None Findings: Mild lumbar levocurvature with apex at L3-L4 possibly positional. No acute fractures or dislocation. No significant degenerative change. IMPRESSION: Mild lumbar levocurvature with apex at L3-L4 possibly positional. Otherwise no acute findings. This document has been electronically signed by: Yesenia Owens MD on 04/06/2025 20:01:06
[2025-04-06 19:05] VITALS: BP 109/72; PULSE 124; RESP 18; TEMP 36.7; O2SAT 97; BMI 27.2
--- NOTE | 2025-04-06 19:05 | ED_ITS ---
HPI - Back Pain/Injury General Chief Complaint: Back Pain/Injury Stated Complaint: herniated disk Related Data Previous Rx's ?Medication ?Instructions ?Recorded morphine 15 mg immediate release 15 mg PO Q6H PRN pain #14 tabs 04/07/25 tablet Allergies Allergy/AdvReac Type Severity Reaction Status Date / Time No Known Allergies Allergy Verified 04/07/25 03:27 [facility] Social History Social History Alcohol intake: current Smoked in Last 30 Days: Yes Use of substances other than those prescribed or required for medical reasons: No Advance Directives: No Do you have a plan to hurt others: No Plan Physical Exam Vital Signs: Vital Signs: Last Vital Signs Temp 98.1 F 04/06/25 19:05 Pulse 124 H 04/06/25 19:05 Resp 18 04/06/25 19:05 BP 109/72 04/06/25 19:05 Pulse Ox 97 04/06/25 19:05 O2 Del Method Room Air 04/06/25 19:05 BMI result Body Mass Index 27.2 Course Course Course Narrative: This is an RME performed by Mina Herrera CNP: Additional HPI, ROS, PE not included below will be deferred to primary provider. Patient is a 21-year-old male who presents emergency department for evaluation of low back pain radiating to the left leg. 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 Reports approximately 7 years ago he had cortisone injections for this. Due to loss of insurance and never really followed up in regards to this. He would have an occasional flare of pain with the last occurring approximately 2 years ago. Reports that he awoke yesterday morning with stiffness that has progressively worsened and he is having severe pain. tried acetaminophen/ibuprofen without improvement, tried to take some shots of alcohol without improvement. Known precipitating injury or heavy lifting. No saddle paresthesias. No bladder bowel dysfunction. very uncomfortable, difficulty to sit in triage chair, right side lying essentially, tachycardia 130, suspect due to pain, afebrile, no reported or infectious sx. ambulatory with slow steady gait. Placed in waiting room pending bed availability Reevaluation(s) Reevaluation #1: LWCT Discharge Plan Discharge Clinical Impression: Back pain Patient Disposition: Left W/O Completing Treatment Prescriptions: No Action morphine 15 mg tablet 15 mg PO Q6H PRN (Reason: pain) Qty: 14 0RF Rx Instructions: Partial Fill upon patient request. Discharge Date/Time: 04/06/25 20:39
--- NOTE | 2025-04-06 20:31 | PC.NURSE ---
called no response from waiting room x 2 at 19:55.
== END 2025-04-06 20:39 | disposition left against medical advice (07) ==
LOC: HO.ED 20:39
PROVIDERS: Emergency Provider Emergency Medicine
DX: M54.50 Low back pain, unspecified (principal)
CPT/HCPCS: 72100; 99281; 99283

== ENCOUNTER → 2025-04-06 19:11 | Outpatient (BNV) | payer BC, SELFPAY | PROVIDERS: Emergency Provider Emergency Medicine; Visit Provider Radiology Diagnostic Radiology | DX: M41.86 Other forms of scoliosis, lumbar region (principal) | CPT/HCPCS: 72100 ==

== ENCOUNTER 2025-04-07 03:12 | Emergency (ER) | payer BC, SELFPAY ==
--- NOTE | ~2025-04-07 | CT_ITS ---
CLINICAL HISTORY: Left lower back pain radiating to foot --- Additional Notes or Special Instructions : R O bulging disc, disc disease CT lumbar spine without contrast Comparison: None Findings: Normal vertebral body alignment. No acute fractures or dislocations. There is left foraminal degenerative disc protrusion at L4-L5. Visualized abdominal contents unremarkable. IMPRESSION: 1. No acute findings. 2. Left foraminal L4-L5 degenerative disc protrusion This document has been electronically signed by: Isaac Schulte MD on 04/07/2025 04:45:05
[2025-04-07 03:22] VITALS: BP 133/92; PULSE 102; RESP 22; TEMP 36.6; O2SAT 98; BMI 27.2
[2025-04-07 03:24] VITALS: BMI 27.4
[2025-04-07 03:30] VITALS: BP 118/78; PULSE 87; RESP 18; TEMP 37.1; O2SAT 98
--- NOTE | 2025-04-07 03:39 | ED_ITS ---
HPI - Back Pain/Injury General Chief Complaint: Back Pain/Injury Stated Complaint: herniated disc ? Time Seen by Provider: 04/07/25 03:37 Source: patient Mode of arrival: ambulatory Limitations: no limitations History of Present Illness ED Provider: Dr. Cheo Macdonald HPI Narrative: 29-year-old male who presents emergency department for evaluation of low back pain radiating to the left leg. The patient states that the pain came on suddenly on Monday morning (1 day prior). He denies any injury. Patient's pain is located in his left lower back and radiates down the back of his leg to his foot. He states that the pain is greater than 10/10 in his worse with movement. He states that he gets occasional numbness but no weakness of the left lower extremity. He is having difficulty walking however secondary to his pain. Patient states he had similar pain 10 years ago and was diagnosed with a bulging disc and sciatica. He states that he had a steroid injection and that significantly improved his pain. He states that he was supposed to get physical therapy but he lost his insurance and never got physical therapy. He states that the pain eventually resolved. He states he gets occasional flare-up of this type of pain but that has last episode was 2 years prior. He denied loss of bowel or bladder control, frequency, urgency or dysuria. He denied fever or chills. He denies using injection drugs. Related Data Previous Rx's ?Medication ?Instructions ?Recorded morphine 15 mg immediate release 15 mg PO Q6H PRN pain #14 tabs 04/07/25 tablet Allergies Allergy/AdvReac Type Severity Reaction Status Date / Time No Known Allergies Allergy Verified 04/07/25 03:27 Review of Systems Review of Systems: Yes all other systems are reviewed and are negative [facility] Past Medical History [facility] Narrative: Social history: He does smoke 1 pack of cigarettes per day. He drinks alcohol 2 to 3 times a week and will drink 3-4 beers and occasional liquor as well. He denied drug use. Social History Social History Alcohol intake: current Smoked in Last 30 Days: Yes Use of substances other than those prescribed or required for medical reasons: No Advance Directives: No Do you have a plan to hurt others: No Plan Physical Exam Vital Signs: Vital Signs: Last Vital Signs Temp 98.8 F 04/07/25 03:30 Pulse 87 04/07/25 03:30 Resp 18 04/07/25 03:30 BP 118/78 04/07/25 03:30 Pulse Ox 98 04/07/25 03:30 O2 Del Method Room Air 04/07/25 03:30 BMI result Body Mass Index 27.4 Vital signs were normal Exam: General: Awake, appears to be in significant distress secondary to his pain, he is having difficulty moving on the stretcher secondary to his discomfort. Head: Normocephalic, atraumatic EENT: PERRL, Lids normal, sclera normal, conjunctiva normal, nose normal , ears normal, throat without erythema or exudates Neck: Supple, no adenopathy Lung: breath sounds symmetric, no wheezing, rales or rhonchi Chest: symmetric movement, nontender Heart: regular rate and rhythm, normal S1, S2 no murmurs or rubs Abdomen: soft, non-tender, nondistended, normal bowel sounds Back: no vertebral tenderness, no paraspinal muscle tenderness or spasm. The patient has increased pain with bilateral straight leg raise. Neuro: Awake, alert, oriented, normal speech, cranial nerves intact, moves all extremities symmetrically Psych: Pleasant, cooperative Medications Administered Discontinued Medications Generic Name Dose Route Start Last Admin Trade Name Armando PRN Reason Stop Dose Admin Dexamethasone Sodium Phosphate 10 mg 04/07/25 03:54 04/07/25 03:59 Dexamethasone Sod Phosphate 10 Mg/Ml Vial IVPUSH 04/07/25 03:55 10 mg ONCE ONE Administration Morphine Sulfate 4 mg 04/07/25 03:52 04/07/25 03:59 Morphine Sulfate 4 Mg/Ml Cartridge IVPUSH 04/07/25 03:53 4 mg ONCE STA Administration Protocol Morphine Sulfate 4 mg 04/07/25 04:47 04/07/25 04:53 Morphine Sulfate 4 Mg/Ml Cartridge IVPUSH 04/07/25 04:48 4 mg ONCE STA Administration Protocol Morphine Sulfate 4 mg 04/07/25 06:13 04/07/25 06:22 Morphine Sulfate 4 Mg/Ml Cartridge IVPUSH 04/07/25 06:14 4 mg ONCE STA Administration Protocol Medical Decision Making Medical Decision Making MDM Narrative: 29-year-old male who presents emergency department for evaluation of low back pain radiating to the left leg. The patient states that the pain came on suddenly on Monday morning (1 day prior). He denies any injury. Patient's pain is located in his left lower back and radiates down the back of his leg to his foot. He states that the pain is greater than 10/10 in his worse with movement. He states that he gets occasional numbness but no weakness of the left lower extremity. He is having difficulty walking however secondary to his pain. Patient states he had similar pain 10 years ago and was diagnosed with a bulging disc and sciatica. He states that he had a steroid injection and that significantly improved his pain. He states that he was supposed to get physical therapy but he lost his insurance and never got physical therapy. He states that the pain eventually resolved. He states he gets occasional flare-up of this type of pain but that has last episode was 2 years prior. He denied loss of bowel or bladder control, frequency, urgency or dysuria. He denied fever or chills. He denies using injection drugs. Vital signs were normal. Physical examination revealed no tenderness palpation over his lumbar sacral vertebrae or paraspinal muscles. He does have positive bilateral straight leg raise. Differential diagnosis: ?Includes but is not limited to musculoskeletal sprain/strain, sciatica, degenerative disc disease, paraspinal abscess, cauda equina syndrome Course: 04:00 The patient's presentation and physical examination are consistent with sciatica most likely secondary to bulging disc. I did discuss this with the patient. Patient appears to be in significant distress in his pain is greater than 10/10 therefore I ordered morphine 4 mg IV and dexamethasone 10 mg IV. I will obtain a CT of the patient's lumbar spine to evaluate for possible disc disease. 06:16 The patient required 2 more doses of morphine 4 mg IV to help with his pain. Patient states the pain is now down to a tolerable level but is worse if he stretches his right leg but it is improved if he keeps his leg bent. CT of lumbar spine revealed left foraminal L4-L5 degenerative disc protrusion which correlates with the patient's symptoms. Since the patient was treated with dexamethasone and I told him to avoid anti-inflammatory medications for 3 days and to take Tylenol for pain. For pain not relieved by Tylenol he was prescribed morphine 4 mg every 6 hours as needed for pain. The patient does have a follow-up appointment with his PCP. I also told him to contact our spine surgeon, Dr. Watts for evaluation. He was given printed and verbal instructions and discharged home. Admission/Observation Consideration of admission/observation: Escalation of care including admission/observation considered (Yes) Independent Interpretation Interpretation: My interpretation of the patient's two view lumbar spine is as follows: No acute fractures, disc space appears to be preserved, spine curves to left Radiology Impression Discussion of test interpretation with radiology: I have reviewed the radiologist's reading. Radiologist Impression: 2 views lumbar spine Comparison: None Findings: Mild lumbar levocurvature with apex at L3-L4 possibly positional. No acute fractures or dislocation. No significant degenerative change. IMPRESSION: Mild lumbar levocurvature with apex at L3-L4 possibly positional. Otherwise no acute findings. This document has been electronically signed by: Yesenia Owens MD on 04/06/2025 20:01:06 CT lumbar spine without contrast Comparison: None Findings: Normal vertebral body alignment. No acute fractures or dislocations. There is left foraminal degenerative disc protrusion at L4-L5. Visualized abdominal contents unremarkable. IMPRESSION: 1. No acute findings. 2. Left foraminal L4-L5 degenerative disc protrusion This document has been electronically signed by: Isaac Schulte MD on 04/07/2025 04:45:05 Independent Historian Clinical information obtained from an independent historian. History obtained from or confirmed by: Spouse Prescription Management I considered prescription management with: Pain Medication (Morphine) Discharge Plan Discharge Clinical Impression: Lumbar radiculopathy, Bulging of intervertebral disc between L4 and L5 Patient Disposition: Home, Self-Care Instructions: Lumbar Radiculopathy (ED) Additional Instructions: The CT scan of your lumbar spine did reveal a bulging disc between the L4 and L5 vertebrae which is compressing/pinch the nerve as it comes out the foramina (the whole in each vertebrae). This finding is consistent with the pain that your experiencing. You received dexamethasone 10 mg IV here in the emergency department. This is a strong anti-inflammatory steroid that a lasts for proximally 3 days and hopefully this will reduce some of your pain. Do not take naproxen or other anti-inflammatory medications such as Motrin, Advil, ibuprofen, a leave for the next 3 days. After 3 days you can restart your naproxen to see if that helps your pain. Take morphine 15 mg pills, 1 pill every 6 hours as needed for pain. This medication will make you sleepy, do not drive or work while taking this medication. Morphine is a narcotic medication and can be addicting. If you are concerned about addiction you can ask the pharmacist for less pills or do not get this prescription filled. Follow up with your doctor for re-evaluation. Dr. Watts is a spine surgeon here at [facility], please call his office to see if he can evaluate you for this bulging disc. Continue taking your other medications as prescribed by your providers Follow-up with your doctor in 2 days. Please return to the emergency department if your symptoms get worse or if you develop any symptoms that are concerning to you. Prescriptions: New morphine 15 mg tablet 15 mg PO Q6H PRN (Reason: pain) Qty: 14 0RF Rx Instructions: Partial Fill upon patient request. Referrals: Yordy Bhardwaj MD, PhD [Physician] - 2 weeks (2 days of severe left sciatic pain, CT lumbar spine revealed left foraminal L4- L5 degenerative disc protrusion ) Print Language: Upper Sorbian
[2025-04-07] MEDS: dexAMETHasone sod phosphate 10 MG/ML VIAL IVPUSH (03:59)
[2025-04-07] MEDS: Morphine Sulfate 4 MG/ML CARTRIDGE IVPUSH ×3 (03:59→06:22)
[2025-04-07 06:37] VITALS: BP 129/87; PULSE 87; TEMP 36.6; O2SAT 97
[2025-04-07 06:50] VITALS: BP 129/87; PULSE 87; RESP 18; TEMP 36.6; O2SAT 97
== END 2025-04-07 06:53 | disposition home or self-care (01) ==
PROVIDERS: Emergency Provider Emergency Medicine Emergency Medical Services
DX: M51.16 Intervertebral disc disorders with radiculopathy, lumbar region (principal); F17.210 Nicotine dependence, cigarettes, uncomplicated
CPT/HCPCS: 72131; 96374; 96375; 96376; 99284; J1100; J2270

== ENCOUNTER → 2025-04-07 03:57 | Outpatient (BNV) | payer BC, SELFPAY | PROVIDERS: Emergency Provider Emergency Medicine Emergency Medical Services; Visit Provider Specialist | DX: M51.16 Intervertebral disc disorders with radiculopathy, lumbar region (principal) | CPT/HCPCS: 72131 ==

== ENCOUNTER 2025-04-21 13:01 | Outpatient (AMB) | payer BC, MEDICAID, SELFPAY ==
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
== END 2025-04-21 14:02 | disposition home or self-care (01) ==
PROVIDERS: Referring Provider Family Medicine; Visit Provider Physician Assistant
DX: M51.26 Other intervertebral disc displacement, lumbar region (principal)
CPT/HCPCS: 99204

== ENCOUNTER → 2025-04-21 13:01 | Outpatient (BNVA) | payer BC, SELFPAY | PROVIDERS: Visit Provider Physician Assistant ==

== ENCOUNTER 2025-04-24 07:21 | Day surgery (SDC) | payer BC, MEDICAID, SELFPAY ==
[2025-04-23 09:12] VITALS: BMI 27.2
--- NOTE | ~2025-04-24 | FL_ITS ---
EXAMINATION: FL GUIDANCE ONLY HISTORY: L4-5 DISCECTOMY COMPARISON: Correlation is made to plain films of the lumbar spine dated 04/06/2025. TECHNIQUE: Fluoroscopy time: 2.2 seconds. Cumulative Dose: 1.0302 mGy. DAP: 0.3437 mGym2 Images: 1. FINDINGS: A single fluoroscopic spot film of the lumbar spine in the lateral projection demonstrates a probe directed toward the L4-5 intervertebral disc space from a posterior approach. FL/FL guidance in OR IMPRESSION: Fluoroscopy during procedure. Please see procedure report for additional information. Electronically signed by: Sedrick Dupree MD 04/24/2025 12:34 PM EDT
--- NOTE | 2025-04-24 07:07 | PM.DS ---
DS: Providers Provider Date of Service: 04/24/25 Date of discharge: 04/24/25 Primary care physician: BENI Williamson Admitting clinician: Yordy Bhardwaj DS: Diagnosis Discharge Diagnosis (1) Lumbar disc herniation: Status: Acute DS: Summary Time Attestation Discharge Coordination Time (in mins): 5 Quality: Safe Use of Opioids Does Pt have an Active Cancer Diagnosis on the Problem List?: No Quality: Stroke Does the patient have a stroke diagnosis?: No Physical Exam Vital Signs: Vital Signs: BMI result Body Mass Index 27.2 Discharge Plan Discharge Patient Disposition: Home, Self-Care Referrals: Yasmine Reaves FNP [Primary Care Provider] - 1 Week Discharge Medications: New oxycodone 5 mg tablet 5 mg PO Q6H PRN (Reason: pain) Qty: 20 0RF Rx Instructions: Partial Fill upon patient request. docusate sodium [Colace] 100 mg capsule 100 mg PO BID Qty: 20 0RF Continued morphine 15 mg tablet 15 mg PO Q6H PRN (Reason: pain) Qty: 14 0RF Rx Instructions: Partial Fill upon patient request. gabapentin 600 mg tablet 600 mg PO TID prednisone 20 mg tablet 20 mg PO BID scopolamine base 1 mg over 3 days patch 3 day topical albuterol sulfate 90 mcg/actuation HFA aerosol inhaler 2 puff inhalation Q4-6H cyclobenzaprine 5 mg tablet 5 mg PO TID PRN (Reason: Muscle Spasm) escitalopram oxalate 5 mg tablet 5 mg PO DAILY multivitamin Tablet 1 tab PO DAILY diphenhydramine HCl [Unisom SleepGels] 50 mg Capsule 50 mg PO BEDTIME PRN (Reason: Insomnia) dextroamphetamine-amphetamine [Adderall XR] 10 mg Capsule,Extended Release 24hr 10 mg PO DAILY Tums PRN (Reason: Acid Reflux) Discharge Orders: Discharge Order (Routine); Ordered 04/24/25 Ordered By: Jakob Torres Diet: Advance to usual diet Activity on Discharge: As tolerated Activity Restrictions/Additional Instructions: After your spinal surgery we ask you to observe the following restrictions/guidelines: Activity: It is normal to feel some discomfort as you increase your activity, but that will improve with time. We ask you avoid heavy lifting or acitivities that cause pain. As a general rule, 8lbs is a safe limit for lifting right after surgery. Walk as much as you feel comfortable but not to exhaustion. You will feel extra tired the first few days after surgery. Stay well hydrated. It is OK to walk up and down stairs You may return to driving when you are off narcotics (such as vicodin, oxycodone, dilaudid, etc), and you are back to normal functional capacity. If you have any concerns please check with office before driving. Return to work is specific to each patient and each surgery, so please speak with your doctor/PA at first follow up. Please bring paperwork such as FMLA at that time if you need it filled out. Medications: For optimum pain control, it is best to start with a combination of 500 mg of Tylenol every 4 hours with 600 mg of Motrin every 8 hours, and use narcotics as needed in between for breakthrough pain. We will give you a short supply of narcotics after surgery (usually one weeks worth). If you need more please call the office but do not use more than prescribed. You will need to give our office 48 hours notice if you need narcotics refilled and we do not fill narcotics on weekends or evenings. If you are on a narcotic, it is a good idea to take a stool softener such as colace or senna to avoid constipation If you take blood thinner such as aspirin, Plavix, Coumadin, Effient, Eliquis etc for conditions such as Afib, DVT, Pulmonary embolus, coronary disease, stents etc please speak with your surgeon about specific details as to when you can resume these medications. You can resume NSAIDs on post op day 1 (eg: Motrin, Naproxen, etc). Follow up: Please call the office, , after surgery to arrange a 3 week follow up for wound check. Wound Care: You may remove your dressing on the first day after surgery. ?You may ?leave open to air. Please do not remove the steri strips underneath. they will fall off on their own in one week. IT IS NORMAL FOR THE WOUND TO OOZE OR BE BLOODY FOR A FEW DAYS AFTER SURGERY. ?IF THIS HAPPENS JUST PLACE NEW DRESSING OVER IT TO AVOID STAINING CLOTHES. You may shower on post op day # 1 We ask that you do not let the water soak the wound. If it does get wet, just towel dry lightly. Please do not scrub your incision or place any type of chemical/ointment on the wound. No tub baths, pools or jacuzzis for one month. If you have any leaking or redness from your wound, or fevers, please call office Print Language: Indonesian
[2025-04-24 07:57] VITALS: BP 125/83; PULSE 91; RESP 16; TEMP 36.7; O2SAT 99
[2025-04-24] MEDS: Lactated Ringers 1,000 ML 100 ML IVCONT (08:02)
[2025-04-24] MEDS: methocarbamoL 750 MG TABLET PO (08:02)
--- NOTE | 2025-04-24 08:25 | MHC.SHP ---
Pre-Procedural Eval Section A - 24 Hr Update-Section A only Date of Service: 04/24/25 The patient is an INPATIENT: No Section B - Complete if H&P > 30 days Chief Complaint: Other intervertebral disc displacement, lumbar reg Details of Present Illness: Left leg pain and drop foot Allergies: Allergies Allergy/AdvReac Type Severity Reaction Status Date / Time No Known Allergies Allergy Verified 04/23/25 09:19 Review of Systems Sugical H&P ROS: Negative: Constitution, Cardiovascular, Respiratory, Psychiatric, Hem-Onc, Allergic/Immunologic, Gastrointestinal, Genitourinary, Musculoskeletal, Integumentary, Endocrine and Eyes/Ears/Nose/Throat and Yes, Specify: Neurological ( left drop foot) Exam Surgical H&P Exam: Normal: HEENT, Normal: Heart, Normal: Lungs, Normal: Extremities, Normal: Abdomen and Normal: Skin and Significant Findings: Neurological ( left drop foot) Plan Diagnosis/Plan: Unchanged I have reviewed the history and physical and performed a pertinent physical examination on my patient. No changes have occurred unless specified. left L4-5 microdiskectomy Time Spent With Patient Time: Total time managing care of this patient today __5__ minutes.
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
[2025-04-24] MEDS: ceFAZolin Sodium/Dextrose,Iso 2 GM/50 ML PIGGYBACK IV (09:40)
[2025-04-24] MEDS: Acetaminophen 1,000 MG/100 ML PIGGYBACK 400 MG IV (10:30)
[2025-04-24 11:17] VITALS: BP 158/71; PULSE 105; RESP 16; TEMP 37.2; O2SAT 100
[2025-04-24 11:22] VITALS: BP 138/86; PULSE 103; RESP 14; O2SAT 96
[2025-04-24 11:27] VITALS: BP 136/87; PULSE 101; RESP 19; O2SAT 99
--- NOTE | 2025-04-24 11:27 | P.OP_ITS ---
Operative Note Operative Note Date of Service: 04/24/25 Narrative: Preoperative diagnosis: Left L5 lumbar radiculopathy with drop foot due to disc herniation Postoperative diagnosis: Same Procedure: Left L4-5 lumbar microdiskectomy with microscope Surgeon: Yordy Bhardwaj MD, PhD Supervisor [employer] Office: shad Hutchins This patient developed a an L5 radiculopathy with drop foot. An MRI shows compression of the L5 nerve root due to a disc herniation.. The patient was offered a lumbar microdiskectomy to decompress the nerve root. The procedure complications were explained. The patient was consented. The patient was brought to the operating room and endotracheally intubated. The patient was turned in a prone position on the Michael frame. Prepping and draping was done followed by time-out. A mid lumbar incision was made followed by release of the paravertebral muscles on the left side to expose the L4-5 interspace. An intraoperative x-rays obtained to confirm the correct level. The microscope was brought in. A left L5 laminotomy was done followed by opening of the flavum ligament. The L5 nerve root was identified and retracted medially to expose the L4-5 disc space. The nerve root was deviated posteriorly. An annulotomy was done in a tried to retrieve disc material. The disc itself was of relatively good quality and therefore it was hard to get fragments out. I extended the annulotomy and with a curved and straight pituitary I was retrieving as much as disc material as possible. Lateral from the L5 nerve root a single disc fragment could be removed. I push down the annulus towards the L4-5 disc space which led to more decompression of the L5 nerve root. In the in the L5 nerve root returned to its original colour with pulsations according to the heartbeat. A long nerve hook could be easily moved under the L5 nerve root without resistance. Hemostasis was done. The microscope was removed. Marcaine was injected intramuscularly.The incision was closed in two layers. Steri-Strips used to approximate the incision. An op-site were taken there was used to cover the incision. All sponge and needle counts were correct. Patient was extubated and transported in stable condition to recovery room. this procedure was done with the aid of a physician social human services assistants who performed the initial exposure until the microscope was brought in and performed the closure of the incision. Anesthesia: General Blood loss: 10 mL Complications: None Specimen: None Surgical time: 45 minutes Disposition: Discharge home
[2025-04-24 11:32] VITALS: BP 137/82; PULSE 96; RESP 19; O2SAT 98
[2025-04-24 11:47] VITALS: BP 134/92; PULSE 94; RESP 18; TEMP 36.7; O2SAT 98
== END 2025-04-24 12:49 | disposition home or self-care (01) ==
PROVIDERS: Visit Provider Neurological Surgery
PROC: (CPT 63030; principal; 2025-04-24 09:30)
DX: M51.26 Other intervertebral disc displacement, lumbar region (principal); M54.16 Radiculopathy, lumbar region; M79.662 Pain in left lower leg; M21.372 Foot drop, left foot; R20.0 Anesthesia of skin; R26.2 Difficulty in walking, not elsewhere classified; K76.0 Fatty (change of) liver, not elsewhere classified; Z79.52 Long term (current) use of systemic steroids; Z79.899 Other long term (current) drug therapy; Z99.89 Dependence on other enabling machines and devices; F17.210 Nicotine dependence, cigarettes, uncomplicated
CPT/HCPCS: 63030; J0131; J0690; J1100; J1885; J2003; J2250; J2371; J2405; J2704; J3010

== ENCOUNTER → 2025-04-24 07:21 | Outpatient (BNV) | payer BC, MEDICAID, SELFPAY | PROVIDERS: Visit Provider Physician Assistant | DX: M51.26 Other intervertebral disc displacement, lumbar region (principal) | CPT/HCPCS: 63030; 99499 ==

== ENCOUNTER 2025-05-15 10:38 | Outpatient (AMB) | payer BC, MEDICAID, SELFPAY ==
--- NOTE | 2025-05-15 10:41 | HO.SPINEOV ---
Intake Visit Reasons: 1st post op Intake Note: Mr. 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 Bhardwaj on 04/24/2025. He comes in today for his 1st postoperative visit. He states that his left-sided leg pain has completely resolved since the surgery. In addition to this he reported some numbness of the left posterior calf which also resolved since the surgery. He does still have some issues with full dorsiflexion of his EHL on the left-hand side, but states that this too feels like it is improving. He rates several concerns regarding remaining out of work for the full 8 weeks after microdiskectomy surgery. It is known based on data in statistics that 90% of recurrent disc herniations happen within the 1st 8 weeks after microdiskectomy. 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 He reports that the heaviest thing that he picks up on a daily basis is a 1 liter vial of water. He is very concerned that if he cannot return to work now, he will not be able to pay his bills / mortgage this month and will lose his home. We discussed this at length. No new neurological deficits. The patient ambulates well and rises from a seated position without difficulty. He has a nonantalgic gait. His posterior incision site is closed and well healing with no signs of erythema or drainage. I provided the patient with a letter to return to work without restrictions during this visit, with the understanding by the patient that he is at a high risk of recurrent disc herniation if he does return to any heavy lifting within the 8 week period as described above. The patient wishes to assume this risk and return to work anyways. I would like to follow up with him again in 6 weeks. Rickie Bhardwaj MD,PhD [facility] Coding Level of Care Code Global (27398) Diagnoses Lumbar disc herniation M51.26
== END 2025-05-15 11:01 | disposition home or self-care (01) ==
LOC: HO.HNS 10:39
PROVIDERS: Visit Provider Physician Assistant
DX: M51.26 Other intervertebral disc displacement, lumbar region (principal)
CPT/HCPCS: 99024

== ENCOUNTER 2025-06-25 14:18 | Outpatient (AMB) | payer BC, MEDICAID, SELFPAY ==
--- OUTSIDE RECORDS SUMMARY | 2025-06-25 14:36 | XMS_ITS | Encounter Summary ---
Author Organization [facility] Address [address] [place] [address] Phone Care Team Providers Care Marble Rubber Name Role Phone Priya Etienne MD Primary Care Provider [email or web address] Encounter Details Date Type Department Care Team (Latest Contact Info) Description 08/23/2023 Transcribe Orders [facility] Laboratory [address] [place] [address] Hannah Dugan NP [address] [place] [address] [email or web address] (Primary Dx); Periumbilical pain, chronic; Diarrhea, unspecified type Social History Tobacco Use Types Packs/Day Years Used Date Smoking Tobacco: Every Day Cigarettes 0.5 15.6 Started: 2009 Smokeless Tobacco: Former Alcohol Use [...] Assigned at Male 04/02/2018 11:34 AM EDT Legal Sex Male 8:50 PM EDT Gender Identity Male 04/02/2018 11:34 AM EDT Sexual Orientation Straight 04/02/2018 11 :34 AM EDT documented as of this encounter Plan of Treatment Not on file documented as of this encounter Results * C-Reactive Protein (08/23/2023 3:06 PM EDT) C REACTIVE PROTEIN <3.0 0.0 - 4.0 mg/L [facility] Blood 08/23/2023 3:06 PM EDT 08/23/2023 3:10 PM EDT us Hannah Dugan [facility] BLOOD ORDERABLES Final Result Performing Organization Address City/State/[facility] Co de Phone Number [facility] [address] [place] [address] * (ABNORMAL) Comprehensive metabolic panel (08/23/2023 3:06 PM EDT) Pathologist [facility] SODIUM 138 133 - 146 mmol/L [facility] POTASSIUM 4.3 3.3 - 5.1 mmol/L [facility] CHLORIDE 104 96 - 108 mmol/L [facility] CO2 23 21 - 35 mmol/L [facility] BUN 13 6 - 19 mg/dL [facility] CREATININE 1.20 0.5 - 1.5 mg/dL [facility] GLUCOSE 84 70 - 99 mg/dL [facility] ALBUMIN 5.0(H) 3.9 - 4.8 g/dL [facility] TOTAL PROTEIN 7.8 6.5 - 8.0 g/dL [facility] CALCIUM 10.1 8.4 - 10.3 mg/dL [facility] ALKALINE PHOSPHATASE 57 39 - 117 U/L [facility] TOTAL BILIRUBIN 0.4 0.0 - 1.2 mg/dL [facility] AST 43(H) 0 - 37 U/L [facility] ALT 38 0 - 40 U/L [facility] GLOBULIN 2.8 1 - 4.8 g/dL [facility] EGFR 86 >59 mL/min/1.7 3m2 [facility] Comment:Estimated glomerular filtration rate calculated using the CKD-EPI refit equation. ANION GAP 15 10 - 20 mmol/L [facility] Blood 08/23/2023 3:06 PM EDT 08/23/2023 3:10 PM EDT us Hannah Dugan [facility] BLOOD ORDERABLES Final Result [facility] [address] [place] [address] * CBC and differential (08/23/2023 3:06 PM EDT) WBC 6.78 4.00 - 11.00 K/uL [facility] RBC 5.02 4.48 - 5.88 M/uL [facility] HGB 16.0 13.4 - 17.5 g/dL [facility] HCT 45.5 38.0 - 51.0 % [facility] PLT 228 140 - 430 K/uL [facility] MCV 90.6 78.0 - 97.0 fL [facility] MCH 31.9 25.0 - 33.0 pg [facility] MCHC 35.2 32.0 - 36.0 g/dL [facility] RDW 12.3 11.0 - 15.0 % [facility] MPV 11.0 8.4 - 12.8 fl [facility] DIFF METHOD Auto [facility] NEUTS 63.8 43.0 - 75.0 % [facility] LYMPHS 22.7 18.2 - 47.4 % [facility] MONOS 8.8 4.00 - 11.00 % [facility] EOS 3.4 0.0 - 8.0 % [facility] BASOS 0.9 0.0 - 2.0 % [facility] Granulocytes, immature (%) 0.4 0.0 - 0.9 % [facility] ABSOLUTE NEUTS 4.32 1.80 - 7.70 K/uL [facility] ABSOLUTE LYMPHS 1.54 1.00 - 3.10 K/uL [facility] ABSOLUTE MONOS 0.60 0.20 - 0.80 K/uL [facility] ABSOLUTE EOS 0.23 0.00 - 0.80 K/uL [facility] ABSOLUTE BASOS 0.06 0.00 - 0.09 K/uL [facility] Granulocytes, immature 0.03 0.00 - 0.05 K/uL [facility] Blood 08/23/2023 3:06 PM EDT 08/23/2023 3:10 PM EDT Hannah Bennett Ritchie [facility] BLOOD ORDERABLES Final Result Performing Organization Address [facility] de Phone Number [address] [address] * Immunoglobulin A (08/23/2023 3:06 PM EDT) IgA 173 70 - 400 mg/dL [facility] Blood 08/23/2023 3:06 PM EDT 08/23/2023 3:10 PM EDT Hannah Bennett Ritchie [facility] BLOOD ORDERABLES Final Result Performing Organization Address [facility] de Phone Number [address] [address] * Tissue transglutaminase IgA (08/23/2023 3:06 PM EDT) TTG IGA ANTIBODY <1.2 <4.0 (Negative) U/mL [facility] Blood 08/23/2023 3:06 PM EDT 08/23/2023 3:10 PM EDT Hannah Sabrinaedward Dugan [facility] BLOOD ORDERABLES Final Result Performing Organization Address [facility] de Phone Number [facility] [address] [place] [address] documented in this encounter Visit Diagnoses Diagnosis [...] documented as of this encounter Care Teams Marble Rubber Relationship Specialty Start Date End Date Priya Etienne MD [email or web address] PCP - General Family Medicine 09/08/21 documented as of this encounter Additional Source Comments The information contained in this document represents components of the legal health record. It is not the complete legal health record.[facility]
--- OUTSIDE RECORDS SUMMARY | 2025-06-25 14:36 | XMS_ITS ---
Author Name [facility] Encounters Encounter Type Encounter Reason Primary Diagnosis Location Date Ambulatory [facility] dora [facility] 06/19/2025 Care Team Organization Name Specialty Phone Email Start Date End Da te [facility] 06/22
--- NOTE | 2025-06-25 14:41 | A.SPINEOV_ITS ---
Intake Visit Reasons: 2nd post op Intake Note: Mr. Nicole is here today for his 2nd post-op visit. Allergies No Known Allergies Allergy (Verified 05/15/25 10:41) Assessment & Plan Assessment & Plan (1) Foot drop, left: Code(s): M21.372 - Foot drop, left foot Category: Medical Plan Yves is a 29 year old male who underwent left-sided L4-[address] Bhardwaj on 04/24/2025. He comes in today for his 2nd postoperative visit. To recap during his last visit he reported his left pain had completely resolved. He did report some continued issues with full dorsiflexion of his EHL on the left-hand side. Today, he continues to report that all of his pain has resolved since his surgery, however he continues to struggle with full dorsiflexion of his EHL in the left hand side. He reports that this has been causing him to occasionally trip, but he has not fallen as of yet. No new neurological deficits. The patient ambulates well and rises from a seated position without difficulty. Left-sided dorsiflexion is notably worse than right. His posterior incision site is closed and well healed. I would like to send Yves for a course of PT to see if they can help strength in his left-sided dorsiflexion. If he is not able to make meaningful improvements we may need to order him an AFO brace. I would like him call the clinic for a follow-up appointment after physical therapy. Rickie Bhardwaj MD,PhD [facility] Orders: Orders PT Evaluation and Treatment Today M21.372 - Foot drop, left foot Coding Level of Care Code Global (20978) Diagnoses Foot drop, left M21.372
== END 2025-06-25 15:04 | disposition home or self-care (01) ==
LOC: HO.HNS 14:18
PROVIDERS: Visit Provider Physician Assistant
DX: M21.372 Foot drop, left foot (principal)
CPT/HCPCS: 99024

== ENCOUNTER 2025-08-10 02:37 | Emergency (ER) | payer BC, SELFPAY ==
[2025-08-10 02:40] VITALS: BP 140/89; PULSE 100; RESP 20; TEMP 36.9; O2SAT 99; BMI 28.2
[2025-08-10 03:05] LABS: MANUAL DIFF FLAG NO
[2025-08-10 03:06] LABS: Hematocrit 47.3 % (42.0-52.0); Hemoglobin 17.7 g/dl (14.0-18.0); Imm Gran Abs Auto 0.11 X10*3/uL (0.00-0.03); Imm Gran Pct Auto 1.2 % (0.0-0.4); Lymphocytes Absolute Auto 2.2 X10*3/uL (1.2-4.9); Mean Corpuscular HGB Conc 37.4 g/dl (31.0-36.0); Mean Corpuscular Hemoglobin 32.9 pg (27.0-33.0); Mean Corpuscular Volume 87.9 fL (80.0-98.0); NRBC Abs Auto 0.000 X10*3/uL (0.0-0.012); NRBC Pct Auto 0.0 /100WBC (0.0-0.2); Platelet Count 242 X10*3/uL (160-400); Red Blood Count 5.38 X10*6/uL (4.60-5.80); White Blood Count 9.4 X10*3/uL (4.8-10.8)
--- OUTSIDE RECORDS SUMMARY | 2025-08-10 03:14 | XMS_ITS | Encounter Summary ---
Author Organization [facility] Address [address] [place] [address] Phone Care Team Providers Care Healthcare Administrative Assistant Name Role Phone Priya Etienne MD Primary Care Provider [email or web address] Encounter Details Date Type Department Care Team (Late st Contact Info) Description 04/16/2025 Procedure Pass [facility], [address] [address] Social History Tobacco Use Types Packs/Day Years Used Date Smoking Tobacco: Every Day Cigarettes 0.5 15.7 Started: 2009 Smokeless Tobacco: Former Alcohol Use [...] - Inhaled Oxygen Concentration - - Weight 78.9 kg (174 lb) 04/18/2025 3:56 PM EDT Height 170.2 cm (5' 7 ) 04/18/2025 3:56 PM EDT Body Mass Index 27.25 04/18/2025 3:56 PM EDT documented in this encounter Plan of Treatment Not on file documented as of this encounter Visit Diagnoses Not on filedocumented in this encounter Additional Health Concerns Assessment Noted Time A Body Mass Index follow-up plan has been documented for the patient 12/21/2019 11:13 AM EST documented as of this encounter Care Teams Healthcare Administrative Assistant Relationship Specialty Start Date End Date Priya Etienne MD [email or web address] PCP - General Family Medicine 09/08/21 documented as of this encounter Additional Source Comments The information contained in this document represents components of the legal health record. It is not the complete legal health record.[facility]
--- OUTSIDE RECORDS SUMMARY | 2025-08-10 03:14 | XMS_ITS | Encounter Summary ---
Author Organization [facility] Address [address] [place] [address] Phone Care Team Providers Care Construction Contractor Name Role Phone Priya Etienne MD Primary Care Provider [email or web address] Encounter Details Date Type Department Care Team (Latest Contact Info) Description 08/23/2023 Transcribe Orders [facility] Laboratory 10 [facility] 2nd [place] [address] Hannah Dugan CNP [address] [place] [address] Bloating (Primary Dx); Periumbilical pain, chronic; Diarrhea, [...] REACTIVE PROTEIN <3.0 0.0 - 4.0 mg/L [facility] Blood 08/23/2023 3:06 PM EDT 08/23/2023 3:10 PM EDT us Hannah Dugan [facility] LAB BLOOD ORDERABLES Final Result Performing Organization Address City/State/[facility] Co de Phone Number [address] [address] * (ABNORMAL) Comprehensive metabolic panel (08/23/2023 3:06 PM EDT) SODIUM 138 133 - 146 mmol/L [facility] POTASSIUM 4.3 3.3 - 5.1 mmol/L [facility] CHLORIDE 104 96 - 108 mmol/L [facility] CO2 23 21 - 35 mmol/L [facility] BUN 13 6 - 19 mg/dL [facility] CREATININE 1.20 0.5 - 1.5 mg/dL [facility] GLUCOSE 84 70 - 99 mg/dL [facility] ALBUMIN 5.0(H) 3.9 - 4.8 g/dL [facility] TOTAL PROTEIN 7.8 6.5 - 8.0 g/dL [facility] CALCIUM 10.1 8.4 - 10.3 mg/dL [facility] ALKALINE PHOSPHATASE 57 39 - 117 U/L [facility] TOTAL BILIRUBIN 0.4 0.0 - 1.2 mg/dL [facility] AST 43(H) 0 - 37 U/L [facility] ALT 38 0 - 40 U/L [facility] GLOBULIN 2.8 1 - 4.8 g/dL [facility] EGFR 86 >59 mL/min/1.7 3m2 [facility] Comment:Estimated glomerular filtration rate calculated using the CKD-EPI refit equation. ANION GAP 15 10 - 20 mmol/L [facility] Blood 08/23/2023 3:06 PM EDT 08/23/2023 3:10 PM EDT us Hannah Dugan QUALITY ASSURANCE CALIBRATOR LAB BLOOD ORDERABLES Final Result [facility] [address] [place] [address] * CBC and differential (08/23/2023 3:06 PM EDT) WBC 6.78 4.00 - 11.00 K/uL [facility] RBC 5.02 4.48 - 5.88 M/uL [facility] HGB 16.0 13.4 - 17.5 g/dL [facility] HCT 45.5 38.0 - 51.0 % [facility] PLT 228 140 - 430 K/uL [facility] MCV 90.6 78.0 - 97.0 fL [facility] MCH 31.9 25.0 - 33.0 pg [facility] MCHC 35.2 32.0 - 36.0 g/dL [facility] RDW 12.3 11.0 - 15.0 % [facility] MPV 11.0 8.4 - 12.8 fl [facility] DIFF METHOD Auto [facility] NEUTS 63.8 43.0 - 75.0 % [facility] LYMPHS 22.7 18.2 - 47.4 % [facility] MONOS 8.8 4.00 - 11.00 % [facility] EOS 3.4 0.0 - 8.0 % [facility] BASOS 0.9 0.0 - 2.0 % [facility] Granulocytes, immature (%) 0.4 0.0 - 0.9 % [facility] ABSOLUTE NEUTS 4.32 1.80 - 7.70 K/uL [facility] ABSOLUTE LYMPHS 1.54 1.00 - 3.10 K/uL [facility] ABSOLUTE MONOS 0.60 0.20 - 0.80 K/uL [facility] ABSOLUTE EOS 0.23 0.00 - 0.80 K/uL [facility] ABSOLUTE BASOS 0.06 0.00 - 0.09 K/uL [facility] Granulocytes, immature 0.03 0.00 - 0.05 K/uL [facility] Blood 08/23/2023 3:06 PM EDT 08/23/2023 3:10 PM EDT Hannah Dugan [facility] LAB BLOOD ORDERABLES Final Result Performing Organization Address [facility] Co de Phone Number [address] [address] * Immunoglobulin A (08/23/2023 3:06 PM EDT) IgA 173 70 - 400 mg/dL [facility] Blood 08/23/2023 3:06 PM EDT 08/23/2023 3:10 PM EDT [facility] LAB BLOOD ORDERABLES Final Result Performing Organization Address [facility] Co de Phone Number [address] [address] * Tissue transglutaminase IgA (08/23/2023 3:06 PM EDT) TTG IGA ANTIBODY <1.2 <4.0 (Negative) U/mL [facility] Blood 08/23/2023 3:06 PM EDT 08/23/2023 3:10 PM EDT Hannah Dugan [facility] LAB BLOOD ORDERABLES Final Result Performing Organization Address [facility] Co de Phone Number [facility] [address] [place] [address] documented in this encounter Visit Diagnoses Diagnosis [...] documented as of this encounter Care Teams Construction Contractor Relationship Specialty Start Date End Date Priya Etienne MD [email or web address] PCP - General Family Medicine 09/08/21 documented as of this encounter Additional Source Comments The information contained in this document represents components of the legal health record. It is not the complete legal health record.[facility]
--- OUTSIDE RECORDS SUMMARY | 2025-08-10 03:14 | XMS_ITS | Encounter Summary ---
Author Organization [facility] Address [address] [place] [address] Phone Care Team Providers Care Exploration Engineer Name Role Phone John Guerrero MD Primary Care Provider [phone] Elaine Shook RNequipment validation engineer Provider [phone] Gisselle Mcclellan MD Primary Care Provider [phone] Priya Etienne MD Primary Care Provider [email or web address] Encounter Details Date Type Department Care Team (Late st Contact Info) Description 07/24/2018 Procedure Pass [address] [place] [address] Social History Tobacco Use Types Packs/Day Years [...] documented as of this encounter Care Teams Exploration Engineer Relationship Specialty Start Date End Date John Guerrero MD [address] [facility], [address] [place] [address] [email or web address] PCP - General 08/29/17 12/11/19 Elaine Shook RN [address] [place] [address] [email or web address] PCP - General Internal Medicine 12/12/19 08/19/21 Gisselle Mcclellan MD [address] [place] [address], [address] [place] [address] [email or web address] PCP - General Internal Medicine 08/20/21 09/07/21 Priya Etienne MD [email or web address] PCP - General Family Medicine 09/08/21 documented as of this encounter Additional Source Comments The information contained in this document represents components of the legal health record. It is not the complete legal health record.[facility]
--- OUTSIDE RECORDS SUMMARY | 2025-08-10 03:14 | XMS_ITS | Encounter Summary ---
Author Organization [facility] Address [address] [place] [address] Phone Care Team Providers Care Lamina Searcher Name Role Phone John Guerrero MD Primary Care Provider [phone] Elaine Shook RNimplementation manager Provider [phone] Gisselle Mcclellan MD Primary Care Provider [phone] Priya Etienne MD Primary Care Provider [email or web address] Reason for Referral * MRI/CAT Scan - Closed Specialty Diagnoses / Procedures Referred By Contac t Referred To Contact Radiology Diagnoses Chronic low back pain with sciatica, sciatica laterality unspecified, unspecified back pain laterality Lumbar radiculopathy Procedures MRI Lumbar Spine Jameel Rogers PA Phone: tel: fax: [email or web address] Referral ID Status Reason Start Date Expiration Date Visits Re quested Visits Authorized [id number] Closed 07/17/2018 10/15/2018 1 1 Encounter Details Date Type Department Care Team (Latest Contact Info) Description 07/24/2018 Ancillary Orders Virtual Department [address] [place] [address] Jameel Rogers PA [address] [place] [address] [email or web address] Chronic low back pain with sciatica, sciatica [...] source of left radicular symptoms. POS - [id number] Edited by: Tawana Bridges on 08/01/2018 3:21 PM Narrative 08/01/2018 3:27 PM EDT HISTORY: Low back pain with left radiculopathy. COMPARISON: Report of EMG radiographs April 16. TECHNIQUE: Exam performed on a 1.5 Esme high-field MRI scanner. Sagittal T1, T2 and STIR, axial T1 and [...] inferiorly extending disc protrusion abutting the left [id number] root and could be a source of [...] left L4-5 disc protrusion abutting the left [id number] root. This could be a source of left radicular symptoms. POS - [id number] Edited by: Tawana Bridges on 08/01/2018 3:21 PM Jameel REVELES IMG MR XSPECIALTY Final Res ult documented in this encounter Visit Diagnoses Diagnosis [...] documented as of this encounter Care Teams Lamina Searcher Relationship Specialty Start Date End Date John Guerrero MD [address] [facility], [address] [place] [address] [email or web address] PCP - General 08/29/17 12/11/19 Elaine Shook RN [address] [place] [address] [email or web address] PCP - General Internal Medicine 12/12/19 08/19/21 Gisselle Mcclellan MD [address] [place] [address], 2nd [place] [address] [email or web address] PCP - General Internal Medicine 08/20/21 09/07/21 Priya Etienne MD [email or web address] PCP - General Family Medicine 09/08/21 documented as of this encounter Additional Source Comments The information contained in this document represents components of the legal health record. It is not the complete legal health record.[facility]
--- OUTSIDE RECORDS SUMMARY | 2025-08-10 03:14 | XMS_ITS | Encounter Summary ---
Author Organization [facility] Address [address] [place] [address] Phone Care Team Providers Care Ivory Polisher Name Role Phone Priya Etienne MD Primary Care Provider [email or web address] Encounter Details Date Type Department Care Team (Late st Contact Info) Description 02/14/2025 Procedure Pass [facility], Ct Scan - [address] [address] Social History Tobacco Use Types Packs/Day Years [...] AM EDT documented as of this encounter Functional Status * Calculated C-SSRS Risk Score (Lifetime/Recent) Answer Date of Assessment Author No Risk Indicated 02/14/2025 2:46 PM EDT Radha Brenner RN * Comfort Suicide Severity Rating Scale (Screener/Recent Self-Report) Question Answer Date of Assessment Author 1. Wish to be (Past 1 Month) No 02/14/2025 2:46 PM EDT Radha Brenner RN 2. Non-Specific Active Suici flower Thoughts (Past 1 Month) No 02/14/2025 2:46 PM EDT Radha Brenner, [place] 6. Suicidal Behavior (Lifetime) No 2:46 PM EDT Radha Brenner RN documented as of this encounter Plan of [...] documented as of this encounter Care Teams Ivory Polisher Relationship Specialty Start Date End Date Priya Etienne MD [email or web address] PCP - General Family Medicine 09/08/21 documented as of this encounter Additional Source Comments The information contained in this document represents components of the legal health record. It is not the complete legal health record.[facility]
--- OUTSIDE RECORDS SUMMARY | 2025-08-10 03:15 | XMS_ITS | Encounter Summary ---
Author Organization [facility] Address [address] [place] [address] Phone Care Team Providers Care Charter Coach Driver Name Role Phone Priya Etienne MD Primary Care Provider [email or web address] Encounter Details Date Type Department Care Team (Latest Contact Info) Description 08/24/2023 Transcribe Orders Virtual Department [address] [place] [address] Hannah Dugan CNP [address] [place] [address] [email or web address] Bloating (Primary Dx); Diarrhea, unspecified type; Periumbilical [...] documented as of this encounter Care Teams Charter Coach Driver Relationship Specialty Start Date End Date Priya Etienne MD [email or web address] PCP - General Family Medicine 09/08/21 documented as of this encounter Additional Source Comments The information contained in this document represents components of the legal health record. It is not the complete legal health record.[facility]
--- OUTSIDE RECORDS SUMMARY | 2025-08-10 03:15 | XMS_ITS | Encounter Summary ---
Author Organization [facility] Address [address] [place] [address] Phone Care Team Providers Care Project Management Professional Name Role Phone Priya Etienne MD Primary Care Provider [email or web address] Reason for Referral * MRI/CAT Scan - Closed Specialty Diagnoses / Procedures Referred By Contac t Referred To Contact Radiology Diagnoses Radiculopathy, lumbar region Procedures MRI Lumbar Spine CHG MRI, LUMBAR SPINE CHG MRI, LUMBAR SPINE CONTRAST CHG MRI, LUMBAR SPINE COMBO Yasmine Reaves NP [address] [place] [address] Phone: tel: fax: Referral ID Status Reason Start Date Expiration Date Visits Re quested Visits Authorized [id number] Closed 04/11/2025 06/09/2025 1 1 Encounter Details Date Type Department Care Team (Late st Contact Info) Description 04/16/2025 Transcribe Orders Virtual Department [address] [place] [address] Yasmine Reaves NP [address] [place], [place] [id number] Radiculopathy, lumbar region (Primary Dx) Social History Tobacco Use Types Packs/Day Years [...] * MRI LUMBAR SPINE (NEURO) WITHOUT CONTRAST (04/20/2025 3:13 PM EDT) Anatomical Region Laterality Modality L-spine Magnetic Resonan ce 04/23/2025 11:1 3 AM EDT Impressions 04/23/2025 11:20 AM EDT Mild degenerative changes of the lumbar spine have mildly worsened since July 2018. There is no evidence of high-grade spinal canal or foraminal narrowing. Similar left paracentral disc protrusion is noted at L4-L5 level contributing to partial effacement of the left subarticular recess. Narrative 04/23/2025 11:20 AM EDT MRI LUMBAR SPINE (NEURO) WITHOUT CONTRAST Referring clinician's provided indication for this examination in [facility]: Outside Radiology Order; radiculopathy TECHNIQUE: MRI LUMBAR SPINE (NEURO) WITHOUT CONTRAST COMPARISON: MRI LUMBAR SPINE (NEURO) WITHOUT CONTRAST FINDINGS: Alignment and Vertebrae: The usual lumbar lordosis is preserved. There is minimal retrolisthesis of L4 on L5. No compression fracture. Marrow: No suspicious bone marrow replacing lesion. Discs and Endplates: Mild to moderate intervertebral disc height loss and loss of normal T2 disc signal are seen, more pronounced at L3-L5 levels Conus: The conus terminates at T12-L1 level. No evidence of abnormal signal in the visualized spinal cord. Soft Tissue: No prevertebral soft tissue edema. Findings by level: T12-L1: No spinal canal or foraminal narrowing. L1-L2: No spinal canal or foraminal narrowing. L2-L3: Diffuse disc bulge is noted. No significant spinal canal or foraminal narrowing. L3-L4: Diffuse disc bulge and mild bilateral facet arthropathy are seen. These contribute to mild left foraminal narrowing. No significant spinal canal narrowing. L4-L5: Diffuse disc bulge with superimposed left paracentral disc protrusion and mild bilateral facet arthropathy are seen. These contribute to mild spinal canal narrowing with partial effacement of the left subarticular recess and mild to moderate left foraminal narrowing. L5-S1: Diffuse disc bulge and mild bilateral facet arthropathy are seen. These contribute to mild bilateral foraminal narrowing. No spinal canal narrowing. Procedure Note Tyrone Pool MD - 04/23/2025 MRI LUMBAR SPINE (NEURO) WITHOUT CONTRAST Referring clinician's provided indication for this examination in Epic:Outside Radiology Order; radiculopathy TECHNIQUE: MRI LUMBAR SPINE (NEURO) WITHOUT CONTRAST COMPARISON: MRI LUMBAR SPINE (NEURO) WITHOUT CONTRAST FINDINGS: Alignment and Vertebrae: The usual lumbar lordosis is preserved. There isminimal retrolisthesis of L4 on L5. No compression fracture. Marrow: No suspicious bone marrow replacing lesion. Discs and Endplates: Mild to moderate intervertebral disc height loss andloss of normal T2 disc signal are seen, more pronounced at L3-L5 levels Conus: The conus terminates at T12-L1 level. No evidence of abnormalsignal in the visualized spinal cord. Soft Tissue: No prevertebral soft tissue edema. Findings by level: T12-L1: No spinal canal or foraminal narrowing. L1-L2: No spinal canal or foraminal narrowing. L2-L3: Diffuse disc bulge is noted. No significant spinal canal orforaminal narrowing. L3-L4: Diffuse disc bulge and mild bilateral facet arthropathy are seen.These contribute to mild left foraminal narrowing. No significant spinalcanal narrowing. L4-L5: Diffuse disc bulge with superimposed left paracentral discprotrusion and mild bilateral facet arthropathy are seen. These contributeto mild spinal canal narrowing with partial effacement of the leftsubarticular recess and mild to moderate left foraminal narrowing. L5-S1: Diffuse disc bulge and mild bilateral facet arthropathy are seen.These contribute to mild bilateral foraminal narrowing. No spinal canalnarrowing. IMPRESSION: Mild degenerative changes of the lumbar spine have mildly worsened sinceSept2017. There is no evidence of high-grade spinal canal orforaminal narrowing. Similar left paracentral disc protrusion is noted atL4-L5 level contributing to partial effacement of the left subarticularrecess. Yasmine Reaves STONE SPREADER OPERATOR IMG MR XSPECIALTY Final Re sult documented in this encounter Visit Diagnoses Diagnosis Radiculopathy, lumbar region- Primary Thoracic or lumbosacral neuritis or radiculitis, unspecified Radiculopathy, lumbar region Thoracic or lumbosacral neuritis or radiculitis, unspecified documented in this encounter Additional Health Concerns Assessment Noted Time A Body Mass Index follow-up plan has been documented for the patient 12/21/2019 11:13 AM EST documented as of this encounter Care Teams Project Management Professional Relationship Specialty Start Date End Date Priya Etienne MD [email or web address] PCP - General Family Medicine 09/08/21 documented as of this encounter Additional Source Comments The information contained in this document represents components of the legal health record. It is not the complete legal health record.[facility]
--- OUTSIDE RECORDS SUMMARY | 2025-08-10 03:15 | XMS_ITS | Clinical Summary ---
Author Organization [facility] Address [address] [place] [address] Phone Care Team Providers Care Estate Agent Name Role Phone rPiya Etienne MD Primary Care Provider [email or web address] Allergies No known active allergies Medications albuterol (PROAIR HFA) 90 mcg/actuation inhaler Inhale [...] with an telemedicine service online for psychiatry Immunizations Immunization Administration Dates Next Due DTaP 12/14/2000, 8,06/05/1997,04/08,02/10/1997 [id number] FORMULATION 09/23/2009 HPV,quadrivalent 10/23/2012,06/20/2012, 2 Hepatitis B 09/03/1997,01/23/1997,1996 Hib,PRP-T 04/01/1998, 7,04/08/1997,02/10 INFLUENZA, SPLIT VIRUS, TRIV ALENT W/ PRESERVATIVE IM 09/05/2012,09/15/2011,09/23/2010 IPV 12/14/2000 Influenza Quadrivalent Prese rvative Free IM 10/25/2021,09/01/2015,08/27/2014,08/15 Influenza Recombinant Javier valent Preservative Free IM 12/17/2019 Influenza, Unspecified Formulation 07/19,10/16/2008,09/21/2007,10/23 MMR 01/10/2002,04/01/1998 Meningococcal [...] 0.5 15.7 Started: 2009 Smokeless Tobacco: Former Tobacco Cessation:Ready [...] 74 02/14/2025 6:03 PM EDT Temperature 36.7 C (98.1 F) 02/14/2025 6:03 PM EDT Respiratory Rate 18 02/14/2025 6:03 PM EDT Oxygen Saturation 99% 02/14/2025 6:03 PM EDT Inhaled Oxygen Concentration - - Weight 78.9 kg (174 lb) 04/18/2025 3:56 PM EDT Height 170.2 cm (5' 7 ) 04/18/2025 3:56 PM EDT Body Mass Index 27.25 04/18/2025 3:56 PM EDT Plan of Treatment Health Maintenance Due Date Last Done Comments DEPRESSION SCREENING 2008 HEPATITIS C SCREENING 2014 HIV ONE-TIME SCREENING (18-65 YEARS) 2014 PNEUMOCOCCAL VACCINES (0-49 years) (1 of 2 - PCV) 2015 INFLUENZA VACCINE (#1) 2025 , 12/17/2019, 09/01/2015, Additional history exists COVID-19 VACCINE ( season) 2025 10/13/2021, 09/22/2021 SMOKING Hx and SMOKELESS TOBACCO SCREENING 02/14/2026 02/14/2025 Adult Td,Tdap Booster 10/25/2031 10/25/2021, 009 HIB VACCINES Completed 04/01/1998, 05/14, 04/08/1997, Additional history exists MENINGOCOCCAL VACCINES (ACWY) Completed 08/27/2014, 02/24/2009 HEPATITIS A VACCINES Aged Out No long er eligible based on patient's age to complete this topic MENINGOCOCCAL VACCINES (B) Aged Out N o longer eligible based on patient's age to complete this topic Medical Devices Not on file Insurance [facility] [address] [place] [address] [facility] [address] [address] [place] [address] [place] [address] [facility] [place] [address] [facility] [place] [address] [facility] Care Teams Estate Agent Relationship Specialty Start Date End Date Priya Etienne MD [email or web address] PCP - General Family Medicine 09/08/21 Additional Source Comments The information contained in this document represents components of the legal health record. It is not the complete legal health record.[facility]
[2025-08-10 03:28] LABS: Alanine Aminotransferase 153 U/L (0-40); Albumin Level 4.8 g/dL (3.5-5.0); Alkaline Phosphatase 60 U/L (39-117); Anion Gap 16 (12-20); Aspartate Amino Transferase 80 U/L (5-37); Blood Urea Nitrogen 14 mg/dL (9-16); Calcium 9.6 mg/dL (8.4-10.2); Carbon Dioxide 22 mmol/L (22-29); Chloride 108 mmol/L (96-108); Creatinine Clr Calc Pharmacy 96.1; Estimated Glomerular Filt Rate > 60; Potassium 3.7 mmol/L (3.3-5.1); Sodium 142 mmol/L (135-145); Total Protein 7.7 g/dL (6.5-8.0)
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
[2025-08-10 04:16] VITALS: BP 133/91; PULSE 93; RESP 18; TEMP 36.8; O2SAT 97
[2025-08-10 04:19] VITALS: BP 133/91; PULSE 93; RESP 18; TEMP 36.8; O2SAT 97
== END 2025-08-10 04:20 | disposition home or self-care (01) ==
PROVIDERS: Emergency Provider Emergency Medicine
DX: T50.995A Adverse effect of other drugs, medicaments and biological substances, initial encounter (principal); F41.9 Anxiety disorder, unspecified
CPT/HCPCS: 36415; 80053; 85025; 99282; 99283